=== PATIENT | female | born 1960 ===

== ENCOUNTER 2016-07-07 16:12 | Inpatient (IN) | payer MEDICAID ==
--- NOTE | 2016-07-07 16:27 | CT ---
PROCEDURE: CT HEAD WITHOUT CONTRAST. HISTORY: weakness COMPARISON: None available. TECHNIQUE: Axial computed tomography images were obtained through the head/brain without intravenous contrast. Radiation dose: Total exam DLP = 779 mGy-cm. This CT exam was performed using one or more of the following dose reduction techniques: Automated exposure control, adjustment of the mA and/or kV according to patient size, and/or use of iterative reconstruction technique. FINDINGS: HEMORRHAGE: No intracranial hemorrhage. BRAIN: No mass effect or edema. No atrophy or chronic microvascular ischemic changes. VENTRICLES: Unremarkable. No hydrocephalus. CALVARIUM: Unremarkable. PARANASAL SINUSES: Unremarkable as visualized. No significant inflammatory changes. MASTOID AIR CELLS: Unremarkable as visualized. No inflammatory changes. OTHER FINDINGS: None. IMPRESSION: No acute findings
--- NOTE | 2016-07-07 16:29 | ED PDOC ---
Arrival/HPI - General Chief Complaint: Weakness/Neurological Deficit Time Seen by Provider: 07/07/16 16:28 Historian: Patient, Family, EMS EM Caveat: Acuity of Condition - History of Present Illness Narrative History of Present Illness (Text): 07/07/16 16:31 56 year old female brought in by ambulance after patient became unresponsive at home. EMS report left facial droop and slurred speech. As per daughter, this happened about 45min before pt came into the ER. States that pt is more confused than usual. Past Medical History - Provider Review Nursing Documentation Reviewed: Yes - Past History Past History: No Previous - Infectious Disease Hx of Infectious Diseases: None - Tetanus Immunization Tetanus Immunization: Unknown - Reproductive Menopause: Yes - Cardiac Hx Cardiac Disorders: Yes Hx Hypertension: Yes - Pulmonary Hx Respiratory Disorders: Yes Hx Asthma: Yes Hx Chronic Obstructive Pulmonary Disease (COPD): Yes Hx Emphysema: Yes - Neurological Hx Neurological Disorder: No - HEENT Hx HEENT Disorder: No - Renal Hx Renal Disorder: No - Endocrine/Metabolic Hx Endocrine Disorders: Yes (hypoglycemia) - Hematological/Oncological Hx Blood Disorders: No - Integumentary Hx Dermatological Disorder: No - Musculoskeletal/Rheumatological Hx Musculoskeletal Disorders: Yes Hx Back Pain: Yes Hx Herniated Disk: Yes - Gastrointestinal Hx Gastrointestinal Disorders: No - Genitourinary/Gynecological Hx Genitourinary Disorders: No - Psychiatric Hx Psychophysiologic Disorder: Yes Hx Anxiety: Yes Hx Depression: Yes Hx Substance Use: No - Past Surgical History Past Surgical History: No Previous - Surgical History Hx Section: Yes Hx Tonsillectomy: Yes Hx Tubal Ligation: Yes (REVERSED) - Anesthesia Hx Anesthesia: No Hx Anesthesia Reactions: No - Suicidal Assessment Feels Threatened In Home Enviroment: No Family/Social History Family/Social History: Unknown Family HX Smoking Status: Former Smoker Hx Alcohol Use: No Hx Substance Use: No Hx Substance Use Treatment: No Allergies/Home Meds Allergies/Adverse Reactions: Allergies latex Allergy (Verified 07/07/16 16:30) RASH Penicillins Allergy (Verified 07/07/16 16:30) RASH Home Medications: Home Meds Medication Instructions Recorded Confirmed diaZEpam [Valium] 5 mg PO AMHS PRN 12/28/12 07/07/16 Acetaminophen/Oxycodone Hydr 1 tab PO Q6H PRN 04/14/13 05/01/16 [Percocet 10/325 mg Tab] Albuterol HFA [Ventolin HFA 90 1 puff IH BID 04/14/13 07/07/16 mcg/actuation (8 g)] Nitroglycerin [Nitrostat] 1 tab SL PRN PRN 10/09/13 07/07/16 Escitalopram Oxalate 20 mg PO DAILY 02/01/14 07/07/16 Aspirin [Aspirin Chewable] 81 mg PO DAILY 05/01/16 07/07/16 Clopidogrel [Plavix] 75 mg PO DAILY 05/01/16 07/07/16 Zolpidem [Ambien] 10 mg PO HS 05/01/16 07/07/16 Atorvastatin [Lipitor] 20 mg PO DAILY 07/07/16 07/07/16 Docusate [Colace] 100 mg PO DAILY 07/07/16 07/07/16 Lisinopril/Hydrochlorothiazide 1 each PO DAILY 07/07/16 07/07/16 [Lisinopril-Hctz 10-12.5 mg Tab] Nabumetone [Relafen] 500 mg PO 07/07/16 Salmeterol Xinafoate/Fluticaso 1 aer IH 07/07/16 [Advair Hfa 45/21] Review of Systems - Review of Systems Systems not reviewed;Unavailable: Acuity of Condition Physical Exam Vital Signs Reviewed: Yes Vital Signs Temp Pulse Resp BP Pulse Ox 07/07/16 16:35 98.3 F 80 18 148/76 100 Temperature: Afebrile Blood Pressure: Normal Pulse: Regular Respiratory Rate: Normal Appearance: Positive for: Non-Toxic, Comfortable Pain Distress: None Mental Status: No: Agitated, Lethargic - Systems Exam Head: Present: Atraumatic, Normocephalic Pupils: Present: PERRL Extroacular Muscles: Present: EOMI Conjunctiva: Present: Normal Mouth: Present: Moist Mucous Membranes. No: Dry, Drooling Neck: Present: Normal Range of Motion. No: Meningeal Signs, MIDLINE TENDERNESS Respiratory/Chest: Present: Clear to Auscultation, Good Air Exchange. No: Respiratory Distress, Accessory Muscle Use Cardiovascular: Present: Regular Rate and Rhythm, Normal S1, S2. No: Murmurs Abdomen: Present: Normal Bowel Sounds. No: Tenderness, Distention, Peritoneal Signs, Rebound, Guarding Back: Present: Normal Inspection Upper Extremity: Present: Normal Inspection. No: Cyanosis, Edema Lower Extremity: Present: Normal Inspection. No: Edema Neurological: Present: GCS=15, Normal Sensory Function, Other (L. upper extr. weakness. LLE unable to lift) Skin: Present: Warm, Dry, Normal Color. No: Rashes Psychiatric: Present: Alert. No: Anxious, Agitated Medical Decision Making ED Course and Treatment: 56-year-old female presents via EMS, neurologic complaints, stroke called in the field by EMS. Patient had slurring of speech, left upper extremity weakness, and inability to move left lower extremity. Case discussed with Dr. Zaid Johnson, recommends CT Belt Line Feeder : Jam Baptiste MD PROCEDURE: CT HEAD WITHOUT CONTRAST. IMPRESSION: No acute findings 07/07/16 17:04 Aspirin has been ordered On reevaluation, patients slurring of speech resolved, patient's daughter states that she is now speaking and mentaining at baseline Patient is now able to freely move her left upper extremity, and she is able to lift her left lower extremities well. I discussed pros and cons of TPA administration with patient's daughter, she is against medication administration Case discussed with Dr. Johnson again, also confirms that we will not administer TPA EKG interpreted by ER physician. Normal sinus. No ST-segment elevations. Normal intervals. 07/07/16 19:[address] Antonio, accepted admission, agrees with remote/tele pt with no new neuro deficits Belt Line Feeder : Stanislaw Mcqueen MD Approver2 : Report Date : 07/07/2016 17:43:44 My Comment : HISTORY: CVA. Semi upright study portable technique 17:12. COMPARISON: 02/01/2014. FINDINGS: LUNGS: No active pulmonary disease. PLEURA: No significant pleural effusion identified, no pneumothorax apparent. CARDIOVASCULAR: No radiographic findings to suggest acute or significant cardiovascular disease. OSSEOUS STRUCTURES: No significant abnormalities. VISUALIZED UPPER ABDOMEN: Normal. OTHER FINDINGS: None. IMPRESSION: No active disease. No significant interval change compared to the prior examination(s). - Critical Care Critical Care Minutes: 30 minutes - Lab Interpretations Lab Results: 07/07/16 16:35 07/07/16 16:35 Lab Results 07/07/16 16:35: Sodium 139, Potassium 3.6, Chloride 103, Carbon Dioxide 30, Anion Gap 10, BUN 16, Creatinine 0.9, Est GFR ( Amer) > 60, Est GFR (Non- Af Amer) > 60, Random Glucose 101, Calcium 9.1, Total Bilirubin 0.7, AST 29, ALT 27, Alkaline Phosphatase 71, Troponin I < 0.01, Total Protein 7.4, Albumin 4.2, Globulin 3.2, Albumin/Globulin Ratio 1.3, Triglycerides 209 H, Cholesterol 187, LDL Cholesterol Direct 100, HDL Cholesterol 47 07/07/16 16:35: PT 10.7, INR 0.99, APTT 30.8 07/07/16 16:35: WBC 6.7, RBC 4.03, Hgb 12.6, Hct 35.8 L, MCV 88.8, MCH 31.3, MCHC 35.2, RDW 12.2, Plt Count 246, MPV 9.3, Gran % 61.9, Lymph % (Auto) 30.2, Rap[place] % (Auto) 5.8, Eos % (Auto) 1.8, Baso % (Auto) 0.3, Gran # 4.17, Lymph # 2.0 , Rapides # 0.4, Eos # 0.1, Baso # 0.02 - RAD Interpretation Radiology Orders: 07/07/16 16:15 HEAD W/O (CODE STROKE) [CT] Stat 07/07/16 16:29 CHEST PORTABLE [RAD] Stat - Medication Orders Current Medication Orders: Discontinued Medications Aspirin (Aspirin) 325 mg PO STAT STA Stop: 07/07/16 16:30 Last Admin: 07/07/16 16:54 Dose: 325 mg NIHSS Scale ([place]) Time Performed: 16:37 - How Severe is the Stoke Baseline Level of Consciousness: 0=Alert LOC to Questions: 0=Both comments correct LOC to commands: 0=Obeys both correctly Best Gaze: 0=Normal Visual: 0=No visual loss Facial: 0=Normal Motor Arm - Left: 1=Drift noted before 10 sec Motor Arm - Right: 0=No drift Motor Leg - Left: 3=No effort against gravity (falls immediately) Motor Leg - Right: 0=No drift Limb Ataxia: 0=Absent Sensory: 0=Normal Best Language: 0=No aphasia Dysarthia: 1=Mild to moderate slurring Extinction & Inattention (Neglect): 0=Normal, no object Score: 5 Risk Level: Mod Stroke Risk rTPA Inclusion/Exclusion - Refusal of Treatment Patient Refused Treatment: Yes Disposition/Present on Arrival - Present on Arrival Any Indicators Present on Arrival: No History of DVT/PE: No History of Uncontrolled Diabetes: No Urinary Catheter: No History of Decub. Ulcer: No History Surgical Site Infection Following: None - Disposition Have Diagnosis and Disposition been Completed?: Yes Diagnosis: TIA (transient ischemic attack) Disposition: HOSPITALIZED Disposition Time: 19:23 Patient Plan: Admission Condition: FAIR Referrals: Carlie Smith MD [Primary Care Provider] - Follow up with primary
[2016-07-07 16:32] VITALS: BMI 27.6
[2016-07-07 17:29] LABS: ADD MANUAL DIFF? NO
[2016-07-07 17:36] LABS: BASO # 0.02 K/mm3 (0.0-2.0); BASO % 0.3 % (0.0-3.0); EOS # 0.1 (0.0-0.7); EOS % 1.8 % (1.5-5.0); GRAN # 4.17 (1.4-6.5); GRAN % 61.9 % (50.0-68.0); HEMATOCRIT 35.8 % (36.0-48.0); LYMPH % 30.2 % (22.0-35.0); MEAN CELL VOLUME 88.8 fL (80.0-105.0); MEAN CORPUSCULAR HEMOGLOBIN 31.3 pg (25.0-35.0); MEAN CORPUSCULAR HGB CONC 35.2 g/dl (31.0-37.0); MEAN PLATELET VOLUME 9.3 fl (7.0-11.0); MONO # 0.4 (0.1-0.6); MONO % 5.8 % (1.0-6.0); PLATELET COUNT 246 10^3/uL (120.0-450.0); RED CELL DISTRIBUTION WIDTH 12.2 % (11.5-14.5); WHITE BLOOD COUNT 6.7 10^3/ul (4.5-11.0)
[2016-07-07 17:42] LABS: ALB/GLOB RATIO 1.3 (1.1-1.8); ALKALINE PHOSPHATASE 71 U/L (38-133); ALT/SGPT 27 U/L (7-56); AST/SGOT 29 U/L (15-39); BILIRUBIN,TOTAL 0.7 mg/dL (0.2-1.3); BLOOD UREA NITROGEN 16 mg/dL (7-21); CALCIUM 9.1 mg/dL (8.4-10.5); CARBON DIOXIDE 30 mmol/L (21-33); CHLORIDE 103 mmol/L (98-107); CHOLESTEROL 187 mg/dL (130-200); GFR AFRICAN-AMERICAN > 60; GLUCOSE,RANDOM 101 mg/dL (70-110); POTASSIUM 3.6 mmol/L (3.6-5.0); SODIUM 139 mmol/L (132-148); TOTAL PROTEIN 7.4 g/dL (5.8-8.3)
[2016-07-07 17:45] LABS: INR 0.99 (0.93-1.08); PARTIAL THROMBOPLASTIN TIME 30.8 Seconds (23.7-30.8)
--- NOTE | 2016-07-07 17:45 | RAD ---
HISTORY: CVA. Semi upright study portable technique 17:12. COMPARISON: 02/01/2014. FINDINGS: LUNGS: No active pulmonary disease. PLEURA: No significant pleural effusion identified, no pneumothorax apparent. CARDIOVASCULAR: No radiographic findings to suggest acute or significant cardiovascular disease. OSSEOUS STRUCTURES: No significant abnormalities. VISUALIZED UPPER ABDOMEN: Normal. OTHER FINDINGS: None. IMPRESSION: No active disease. No significant interval change compared to the prior examination(s).
[2016-07-07 17:58] LABS: TROPONIN I < 0.01 ng/mL
--- NOTE | 2016-07-07 21:35 | CARD ---
APPROVED REPORT EKG Measurement Heart [id number] CO [id number] [id number] <Conclusion> Normal sinus rhythm Normal ECG
--- NOTE | 2016-07-07 21:43 | CP.PCM.HP ---
<Oracio Vera - Last Filed: 07/08/16 07:16> History of Present Illness - History of Present Illness History of Present Illness: Oracio Vera D.O. PGY-1, Internal Medicine Resident, Night Float Admission CC: left sided weakness and confusion since today 56 year old [place] female with a PMH of HTN, depression, anxiety, herniated disks who presents to [facility] ER on 07/07/16 with complaints of left sided weakness and confusion since this afternoon. Patient's daughter is at bedside and provided context. Patient was at home and was suddenly "not acting herself" and was not responsive to questions. Family called paramedics who stated that "something wasn't right so they brought us here." Patient is able to communicate in both [place] and Amharic but appears somewhat confused and is a poor historian. Patient states that she has somewhat of a headache and that her left side feels "tired." This has never happened before. Daughter denies any slurred speech as she did not talk. No sick contacts or recent travel noted. Daughter states that her weakness seems to have gotten a bit better since arrival. PMH: as above PSH: SH: denies smoking, alcohol, or drug use FH: father of colon CA, mother had heart failure Meds: reviewed Allergies: latex, penicillins Present on Admission - Present on Admission Any Indicators Present on Admission: No Review of Systems - Constitutional Constitutional: absent: Chills, Fatigue, Fever - EENT Eyes: absent: Blind Spots, Blurred Vision, Change in Vision, Diplopia Ears: absent: Decreased Hearing, Ear Discharge, Ear Pain, Disequilibrium, Dizziness Nose/Mouth/Throat: absent: Epistaxis, Nasal Congestion, Nose Pain - Cardiovascular Cardiovascular: absent: Chest Pain, Palpitations, Pedal Edema - Respiratory Respiratory: absent: Cough, Dyspnea, Wheezing - Gastrointestinal Gastrointestinal: absent: Abdominal Pain, Constipation, Diarrhea, Nausea, Vomiting - Genitourinary Genitourinary: absent: Dysuria, Hematuria - Musculoskeletal Musculoskeletal: absent: Deformity, Joint Swelling, Muscle Cramps - Integumentary Integumentary: absent: Pruritus, Rash, Swelling - Neurological Neurological: Confusion, Numbness (left sided), Focal Weakness (left side), Headaches, Sensory Deficit Past Patient History - Infectious Disease Hx of Infectious Diseases: None - Tetanus Immunizations Tetanus Immunization: Unknown - Past Social History Smoking Status: Former Smoker - CARDIAC Hx Cardiac Disorders: Yes Hx Hypertension: Yes - PULMONARY Hx Respiratory Disorders: Yes Hx Asthma: Yes Hx Chronic Obstructive Pulmonary Disease (COPD): Yes Hx Emphysema: Yes - NEUROLOGICAL Hx Neurological Disorder: No - HEENT Hx HEENT Problems: No - RENAL Hx Chronic Kidney Disease: No - ENDOCRINE/METABOLIC Hx Endocrine Disorders: Yes (hypoglycemia) - HEMATOLOGICAL/ONCOLOGICAL Hx Blood Disorders: No - INTEGUMENTARY Hx Dermatological Problems: No - MUSCULOSKELETAL/RHEUMATOLOGICAL Hx Musculoskeletal Disorders: Yes Hx Back Pain: Yes Hx Herniated Disk: Yes - GASTROINTESTINAL Hx Gastrointestinal Disorders: No - GENITOURINARY/GYNECOLOGICAL Hx Genitourinary Disorders: No - PSYCHIATRIC Hx Psychophysiologic Disorder: Yes Hx Anxiety: Yes Hx Depression: Yes Hx Substance Use: No - SURGICAL HISTORY Hx Section: Yes Hx Tonsillectomy: Yes Hx Tubal Ligation: Yes (REVERSED) - ANESTHESIA Hx Anesthesia: No Hx Anesthesia Reactions: No Meds Allergies/Adverse Reactions: Allergies Allergy/AdvReac Type Severity Reaction Status Date / Time latex Allergy RASH Verified 07/07/16 16:30 Penicillins Allergy RASH Verified 07/07/16 16:30 Physical Exam - Constitutional Additional comments: well developed, well nourished [place] female resting in bed in NAD, somewhat confused, daughter at bedside - Head Exam Head Exam: ATRAUMATIC, NORMOCEPHALIC - Eye Exam Eye Exam: EOMI, PERRL. absent: Conjunctival injection, Scleral icterus - ENT Exam ENT Exam: Mucous Membranes Moist, Normal Oropharynx - Neck Exam Neck exam: Positive for: Full Rom. Negative for: Lymphadenopathy - Respiratory Exam Respiratory Exam: Clear to Auscultation Bilateral. absent: Rales, Rhonchi, Wheezes - Cardiovascular Exam Cardiovascular Exam: RRR, +S1, +S2. absent: Diastolic murmur, Gallop, Rubs, Systolic Murmur - GI/Abdominal Exam GI & Abdominal Exam: Normal Bowel Sounds, Soft. absent: Distended, Tenderness - Extremities Exam Extremities exam: Positive for: normal capillary refill, pedal pulses present. Negative for: calf tenderness, joint swelling, pedal edema, tenderness - Back Exam Back exam: absent: paraspinal tenderness, vertebral tenderness - Neurological Exam Additional comments: awake, alert, and oriented to self, time up to year, place up to city, and situation, but at times answers simply questions wrong and is notably confused, there is a mild left facial droop, L control inspector 4-/5, BI 4/5, TRI 4-/5, DELT 4-/5, HF 4-/5, KF 4/5, PF 4/5, DF 4/5, EHL 4/5, right side intact throughout, also there is numbness all long her left arm, leg, and side of face, otherwise rest of cranial nerves were intact, downgoing Babinskis, negative Hoffmans - Skin Skin Exam: Dry, Intact, Warm Results - Vital Signs Recent Vital Signs: Last Vital Signs Temp 98.3 F 07/07/16 16:35 Pulse 69 07/07/16 18:12 Resp 18 07/07/16 18:12 BP 144/89 07/07/16 18:12 Pulse Ox 100 07/07/16 18:12 - Labs Result Diagrams: 07/07/16 16:35 07/07/16 16:35 Assessment & Plan - Assessment and Plan (Free Text) Assessment: 56 year old [place] female with a PMH of HTN, depression, anxiety, herniated disks who presents with complaints of left sided weakness and confusion since this afternoon. Plan: 1. Left sided deficits Admitted to remote telemetry Labs reviewed by myself Head CT reviewed, no acute findings TIA vs stroke depending on how long the symptoms last Neurology Dr. Johnson consulted Troponins trending, negative so far Swallow eval placed PT/OT ordered Neurochecks q4x20 Aspiration precautions HOB 30 Started aspirin Started atorvastatin 2. HTN Continued home medications 3. Anxiety Continued home medications DVT ppx: SCDs Patient was seen and examined at bedside and case was discussed at length with attending physician. - Date & Time Date: 07/07/16 Time: 22:50 <Moe Rogers - Last Filed: 07/08/16 19:50> Results - Vital Signs Recent Vital Signs: Last Vital Signs Temp 97.6 F 07/08/16 16:00 Pulse 78 07/08/16 18:00 Resp 20 07/08/16 16:00 BP 107/70 07/08/16 16:00 Pulse Ox 98 07/08/16 16:00 - Labs Result Diagrams: 07/08/16 07:30 07/08/16 07:30 Labs: Laboratory Results - last 24 hr 07/07/16 07/07/16 07/08/16 21:49 21:49 07:30 WBC RBC Hgb Hct MCV MCH MCHC RDW Plt Count MPV Gran % Lymph % (Auto) Giles % (Auto) Eos % (Auto) Baso % (Auto) Gran # Lymph # Giles # Eos # Baso # Sodium Potassium Chloride Carbon Dioxide Anion Gap BUN Creatinine Est GFR ( Amer) Est GFR (Non-Af Amer) Random Glucose Hemoglobin A1c Calcium Total Bilirubin AST ALT Alkaline Phosphatase Troponin I < 0.01 Total Protein Albumin Globulin Albumin/Globulin Ratio TSH 3rd Generation Blood Type O POSITIVE Blood Type Confirm O POSITIVE Antibody Screen Negative BBK History Checked No verified bt 07/08/16 07/08/16 07/08/16 07:30 07:30 07:30 WBC 5.0 D RBC 3.90 Hgb 12.2 Hct 34.9 L MCV 89.5 MCH 31.3 MCHC 35.0 RDW 12.4 Plt Count 217 MPV 9.2 Gran % 46.3 L Lymph % (Auto) 41.7 H Giles % (Auto) 8.0 H Eos % (Auto) 3.6 Baso % (Auto) 0.4 Gran # 2.33 Lymph # 2.1 Giles # 0.4 Eos # 0.2 Baso # 0.02 Sodium 140 Potassium 3.7 Chloride 104 Carbon Dioxide 29 Anion Gap 11 BUN 17 Creatinine 0.8 Est GFR ( Amer) > 60 Est GFR (Non-Af Amer) > 60 Random Glucose 92 Hemoglobin A1c 5.5 Calcium 8.9 Total Bilirubin 1.0 AST 25 ALT 30 Alkaline Phosphatase 64 Troponin I < 0.01 Total Protein 6.8 Albumin 3.8 Globulin 3.0 Albumin/Globulin Ratio 1.3 TSH 3rd Generation Blood Type Blood Type Confirm Antibody Screen BBK History Checked 07/08/16 07:30 WBC RBC Hgb Hct MCV MCH MCHC RDW Plt Count MPV Gran % Lymph % (Auto) Giles % (Auto) Eos % (Auto) Baso % (Auto) Gran # Lymph # Giles # Eos # Baso # Sodium Potassium Chloride Carbon Dioxide Anion Gap BUN Creatinine Est GFR ( Amer) Est GFR (Non-Af Amer) Random Glucose Hemoglobin A1c Calcium Total Bilirubin AST ALT Alkaline Phosphatase Troponin I Total Protein Albumin Globulin Albumin/Globulin Ratio TSH 3rd Generation 3.60 Blood Type Blood Type Confirm Antibody Screen BBK History Checked Attending/Attestation - Attestation I have personally seen and examined this patient.: Yes I have fully participated in the care of the patient.: Yes I have reviewed all pertinent clinical information: Yes Notes (Text): 07/08/16 19:49 Patient was seen with medical review specialist in the ER. Agree with history, physical examination, assessment and plan.
[2016-07-08] MEDS: Oxycodone/Acetaminophen 10/325 mg Tab PO PRN ×3 (00:25→16:47)
[2016-07-08] MEDS ORDERED: Albuterol 0.083% Inhal Sol (2.5 mg/3 mL) UD IH SCH ×2 (08:00)
[2016-07-08 08:07] LABS: ADD MANUAL DIFF? NO
[2016-07-08 08:10] LABS: BASO # 0.02 K/mm3 (0.0-2.0); BASO % 0.4 % (0.0-3.0); EOS # 0.2 (0.0-0.7); EOS % 3.6 % (1.5-5.0); GRAN # 2.33 (1.4-6.5); GRAN % 46.3 % (50.0-68.0); HEMATOCRIT 34.9 % (36.0-48.0); LYMPH # 2.1 (1.2-3.4); LYMPH % 41.7 % (22.0-35.0); MEAN CELL VOLUME 89.5 fL (80.0-105.0); MEAN CORPUSCULAR HEMOGLOBIN 31.3 pg (25.0-35.0); MEAN PLATELET VOLUME 9.2 fl (7.0-11.0); MONO # 0.4 (0.1-0.6); PLATELET COUNT 217 10^3/uL (120.0-450.0); RED CELL DISTRIBUTION WIDTH 12.4 % (11.5-14.5)
[2016-07-08] MEDS: Albuterol 0.083% Inhal Sol (2.5 mg/3 mL) UD IH SCH ×2 (08:32→20:27)
[2016-07-08 08:37] LABS: ALB/GLOB RATIO 1.3 (1.1-1.8); ALKALINE PHOSPHATASE 64 U/L (38-133); ALT/SGPT 30 U/L (7-56); AST/SGOT 25 U/L (15-39); BLOOD UREA NITROGEN 17 mg/dL (7-21); CALCIUM 8.9 mg/dL (8.4-10.5); CARBON DIOXIDE 29 mmol/L (21-33); CHLORIDE 104 mmol/L (98-107); GFR AFRICAN-AMERICAN > 60; GLUCOSE,RANDOM 92 mg/dL (70-110); POTASSIUM 3.7 mmol/L (3.6-5.0); SODIUM 140 mmol/L (132-148); TOTAL PROTEIN 6.8 g/dL (5.8-8.3)
[2016-07-08 08:43] LABS: TROPONIN I < 0.01 ng/mL
--- NOTE | 2016-07-08 08:59 | CP.PCM.PN ---
<Kiarra Salazar - Last Filed: 07/08/16 09:18> Subjective - Date & Time of Evaluation Date of Evaluation: 07/08/16 Time of Evaluation: 08:53 - Subjective Subjective: Hospitalist Progress Note Patient seen and examined at bedside. There were no acute overnight events. She report having weakness on her left side of face, arm and leg with decreased sensation. Patient says she had 3 stents placed in the past and that is why she takes Plavix and Aspirin. She used to see a pain doctor for her history of back pain but now gets it from her PMD. She denies having CP, SOB, n/v/d, numbness/ tingling. Objective - Vital Signs/Intake and Output Vital Signs (last 24 hours): Temp Pulse Resp BP Pulse Ox 97.8 F 59 L 20 116/72 97 07/08/16 07:18 07/08/16 08:24 07/08/16 07:18 07/08/16 07:18 07/08/16 07:18 - Medications Medications: Current Medications Albuterol Sulfate (Albuterol 0.083% Inhal Susan (2.5 Mg/3 Ml) Ud) 2.5 mg IH [id number] CARLIE Last Admin: 07/08/16 08:32 Dose: 2.5 mg Aspirin (Aspirin Chewable) 81 mg PO DAILY CARLIE Atorvastatin Calcium (Lipitor) 20 mg PO DAILY CARLIE Clopidogrel Bisulfate (Plavix) 75 mg PO DAILY CARLIE Diazepam (Valium) 5 mg PO AMHS PRN; Protocol PRN Reason: Muscle spasm Docusate Sodium (Colace) 100 mg PO DAILY [facility] Escitalopram Oxalate (Lexapro) 20 mg PO DAILY CARLIE Hydrochlorothiazide (Microzide) 12.5 mg PO DAILY CARLIE Lisinopril (Zestril) 10 mg PO DAILY [facility] Oxycodone/Acetaminophen (Percocet 10/325 Mg Tab) 1 tab PO Q6H PRN PRN Reason: Pain, severe (8-10) Last Admin: 07/08/16 00:25 Dose: 1 tab Zolpidem Tartrate (Ambien) 5 mg PO HS CARLIE PRN Reason: Protocol Last Admin: 07/08/16 00:25 Dose: 5 mg - Labs Labs: 07/08/16 07:30 07/08/16 07:30 PT 10.7 Seconds (9.9-11.8) 07/07/16 16:35 INR 0.99 (0.93-1.08) 07/07/16 16:35 APTT 30.8 Seconds (23.7-30.8) 07/07/16 16:35 - Constitutional Appears: No Acute Distress - Head Exam Head Exam: ATRAUMATIC, NORMAL INSPECTION, NORMOCEPHALIC - Eye Exam Eye Exam: Normal appearance Pupil Exam: NORMAL ACCOMODATION - ENT Exam ENT Exam: Mucous Membranes Moist - Neck Exam Neck Exam: Full ROM - Respiratory Exam Respiratory Exam: Clear to Ausculation Bilateral, NORMAL BREATHING PATTERN. absent: Rales, Rhonchi, Wheezes - Cardiovascular Exam Cardiovascular Exam: REGULAR RHYTHM, +S1, +S2. absent: Gallop, Rubs, Murmur - GI/Abdominal Exam GI & Abdominal Exam: Soft, Normal Bowel Sounds. absent: Rigid, Tenderness, Mass , Rebound - Extremities Exam Extremities Exam: Normal Inspection. absent: Calf Tenderness, Pedal Edema - Neurological Exam Neurological Exam: Alert, Awake, Oriented x3 Neuro motor strength exam: Left Upper Extremity: 2/1, Right Upper Extremity: 5, Left Lower Extremity: 3, Right Lower Extremity: 5 Additional comments: L sided facial droop not including forehead. Decreased sensation on L face, arm and leg. Speech slurred. - Psychiatric Exam Psychiatric exam: Normal Affect, Normal Mood - Skin Skin Exam: Dry, Intact, Normal Color, Warm Assessment and Plan - Assessment and Plan (Free Text) Assessment: This is a 56Y F with PMH HTN, HLD, depression, anxiety, chronic back pain from herniated disc, [place] s/p 3 stents who is admitted for CVA. Plan: 1. CVA - Head CT negative - L sided deficits on face, upper and lower extremity, decreased sensation - MRI brain ordered - Neuro consulted - neuro checks - passed speech and swallow - Speech therapy and physical therapy ordered - Aspiration precaution - Carotid doppler, Echo pending - ASA, Lipitor and Plavix - Cardio consulted - Triglycerides mildly elevated, will check TSH and HgbA1c 2. Hx of PCI s/p 3 stents - Cardio consulted - Echo ordered - Continue Plavix and ASA - EKG showed NSR, trop neg x 3 - Uses Imdur at home. 3. HTN - Continue home meds: Lisinopril, HCTZ 4. Depression - Continue Lexapro 5. Chronic back pain - Continue home meds: Valium and percocet prn 6. Hx of Insomnia - Continue Ambien HS GI ppx: PTX DVT ppx: SCDs Case seen, discussed and reviewed with attending Pattie Salazar PGY1 <Ren Valenzuela - Last Filed: 07/08/16 15:41> Objective - Vital Signs/Intake and Output Vital Signs (last 24 hours): Temp Pulse Resp BP Pulse Ox 97.8 F 70 20 116/72 97 07/08/16 07:18 07/08/16 09:34 07/08/16 07:18 07/08/16 09:34 07/08/16 07:18 Intake and Output: 07/08/16 07/08/16 06:59 18:59 Intake Total 600 Output Total 700 Balance -100 - Medications Medications: Current Medications Albuterol Sulfate (Albuterol 0.083% Inhal Susan (2.5 Mg/3 Ml) Ud) 2.5 mg IH [id number] [facility] Last Admin: 07/08/16 08:32 Dose: 2.5 mg Aspirin (Aspirin Chewable) 81 mg PO DAILY [facility] Last Admin: 07/08/16 09:31 Dose: 81 mg Atorvastatin Calcium (Lipitor) 20 mg PO DAILY [facility] Last Admin: 07/08/16 09:34 Dose: 20 mg Clopidogrel Bisulfate (Plavix) 75 mg PO DAILY [facility] Last Admin: 07/08/16 09:34 Dose: 75 mg Diazepam (Valium) 5 mg PO AMHS PRN; Protocol PRN Reason: Muscle spasm Docusate Sodium (Colace) 100 mg PO DAILY [facility] Last Admin: 07/08/16 09:33 Dose: 100 mg Escitalopram Oxalate (Lexapro) 20 mg PO DAILY [facility] Last Admin: 07/08/16 09:36 Dose: 20 mg Hydrochlorothiazide (Microzide) 12.5 mg PO DAILY [facility] Last Admin: 07/08/16 09:34 Dose: 12.5 mg Lisinopril (Zestril) 10 mg PO DAILY [facility] Last Admin: 07/08/16 09:34 Dose: 10 mg Oxycodone/Acetaminophen (Percocet 10/325 Mg Tab) 1 tab PO Q6H PRN PRN Reason: Pain, severe (8-10) Last Admin: 07/08/16 09:34 Dose: 1 tab Pantoprazole Sodium (Protonix Ec Tab) 40 mg PO ACB CARLIE Zolpidem Tartrate (Ambien) 5 mg PO HS CARLIE PRN Reason: Protocol - Labs Labs: 07/08/16 07:30 07/08/16 07:30 PT 10.7 Seconds (9.9-11.8) 07/07/16 16:35 INR 0.99 (0.93-1.08) 07/07/16 16:35 APTT 30.8 Seconds (23.7-30.8) 07/07/16 16:35 Attending/Attestation - Attestation I have personally seen and examined this patient.: Yes I have fully participated in the care of the patient.: Yes I have reviewed all pertinent clinical information, including history, physical exam and plan: Yes Notes (Text): 07/08/16 15:38 attending note; Patient seen and examined with resident. Patient is a 56-year-old female with a history of hypertension, coronary artery disease with stent placement, chronic back pain with disc bulge , previous history of fall, depression, hearing impaired is admitted with unresponsiveness and left-sided weakness. CT head is negative. MRI is negative. no significant carotid stenosis. Stroke protocol followed. continue aspirin, Plavix, lipitor,lisinopril and hydro -thiazide. History of chronic back ; Continue Percocet and Valium. depression; Continue Lexapro. PT evaluation appreciated. Recommending rehabilitation. Case discussed with director social service for discharge planning. The diagnosis discussed with patient's daughter in detail .
[2016-07-08] MEDS ORDERED: Albuterol 0.083% Inhal Sol (2.5 mg/3 mL) UD IH ONE (09:15)
--- NOTE | 2016-07-08 12:43 | MRI ---
PROCEDURE: MRI BRAIN WITHOUT CONTRAST HISTORY: CVA COMPARISON: Noncontrast head CT from 07/07/2016. TECHNIQUE: Multiplanar, multisequence MR images of the brain were obtained without intravenous contrast enhancement. FINDINGS: HEMORRHAGE: None DWI: No evidence of an acute or early subacute infarction. BRAIN PARENCHYMA: Cheng-white matter differentiation is preserved. There is no mass, mass effect or abnormal extra-axial fluid collection. The midline sagittal structures are normal. VENTRICLES: The ventricles are normal in size, shape and configuration. CRANIUM: There is normal bone marrow signal pattern. ORBITS: Grossly unremarkable. PARANASAL SINUSES/MASTOIDS: Predominantly clear. VASCULAR SYSTEM: There are normal signal voids in the larger intracranial arteries. OTHER FINDINGS: None. IMPRESSION: No acute intracranial abnormality. Specifically, no evidence of acute infarction.
--- NOTE | 2016-07-08 14:06 | US ---
PROCEDURE: Bilateral carotid artery duplex ultrasound HISTORY: Carotid stenosis CVA PHYSICIAN(S): Sha Mayo MD. TECHNIQUE: Duplex sonography and color-flow Doppler were used to evaluate the carotid bifurcations and limited segments of the vertebral arteries bilaterally. FINDINGS: There is mild smooth heterogeneous plaque noted at the carotid bifurcations bilaterally. The peak systolic velocity in the proximal right internal carotid artery is 65 cm/sec. This corresponds to a 20 to 39% proximal right ICA stenosis. Normal systolic velocities are noted in the proximal right external carotid artery. There is antegrade flow in the right vertebral artery. The peak systolic velocity in the proximal left internal carotid artery is 63 cm/sec. This corresponds to a 20 to 39% proximal left ICA stenosis. Normal systolic velocities are noted in the proximal left external carotid artery. There is antegrade flow in the left vertebral artery. IMPRESSION: 1. Bilateral 20-39% proximal ICA stenoses. 2. Antegrade flow in both vertebral arteries.
--- NOTE | 2016-07-08 16:40 | CARD ---
APPROVED REPORT EXAM: Two-dimensional and M-mode echocardiogram with Doppler and color Doppler. INDICATION CVA/TIA 2D DIMENSIONS Left Atrium (2D)3.5 (1.6-4.0cm)IVSd0.9 (0.7-1.1cm) LVDd4.7 (3.9-5.9cm)PWd1.1 (0.7-1.1cm) LVDs3.0 (2.5-4.0cm)FS (%) 36.6 % LVEF (%)66.3 (>50%) M-Mode DIMENSIONS Aortic Root2.10 (2.2-3.7cm)Aortic Cusp Exc.1.40 (1.5-2.0cm) Aortic Valve AoV Peak Ctgfqcqc701.0cm/Porfirio Peak GR.6mmHg Mitral Valve MV E Djvjnuhk33.2cm/sMV A Duvxzkkq37.6cm/sE/A ratio1.2 TDI E/Lateral E'0.0E/Medial E'0.0 Tricuspid Valve TR Peak Etmuebop876hj/sRAP VHGOSOWO43dtBlAC Peak Gr.18mmHg [id number] LEFT VENTRICLE The left ventricle is normal size. There is normal left ventricular wall thickness. The left ventricular function is normal. The left ventricular ejection fraction is within the normal range. There is normal LV segmental wall motion. The left ventricular diastolic function is normal. RIGHT VENTRICLE The right ventricle is normal size. There is normal right ventricular wall thickness. The right ventricular systolic function is normal. ATRIA The left atrium size is normal. The right atrium size is normal. AORTIC VALVE The aortic valve is normal in structure. No aortic regurgitation is present. MITRAL VALVE The mitral valve is normal in structure. There is no mitral valve regurgitation noted. TRICUSPID VALVE There is no pulmonary hypertension. GREAT VESSELS The aortic root is normal in size. The IVC collapses <50% with inspiration. PERICARDIAL EFFUSION There is a trace loculated anterior pericardial effusion. <Conclusion> The left ventricle is normal size. There is normal left ventricular wall thickness. The left ventricular function is normal. The left ventricular ejection fraction is within the normal range. There is normal LV segmental wall motion. The left ventricular diastolic function is normal.
--- NOTE | 2016-07-08 16:58 | CARD ---
APPROVED REPORT EKG Measurement Heart [id number] <Conclusion> Sinus bradycardia Otherwise normal ECG
--- NOTE | 2016-07-08 17:35 | CON ---
DATE: 07/08/2016 REASON FOR CONSULTATION: Possible CVA. HISTORY OF PRESENT ILLNESS: The patient is a 56-year-old female who has history of hypertension, hyp erlipidemia who underwent cardiac catheterization in 2010 in [facility] and was told she guevara s insignificant coronary artery disease at that time. She follows up with her photoengraving finisher at the [facility] in [place] since then. The patient was admitted because of unresponsiveness and left-sided we akness. Apparently, a friend was with her and when she noticed unresponsiveness, she activated EMS. After admission, the patient regained her consciousness; however, she is still experiencing left arm and left leg weakness. The patient denies any retrosternal chest pain and is unaware of any history of heart attack in the past. SOCIAL HISTORY: The patient is a nonsmoker. MEDICATIONS: Albuterol inhaler q. 12 hours, aspirin 81 mg once a day, Ambien 5 mg at bedtime, Colace 100 mg once a day, Lexapro 20 mg once a day, Lipitor 20 mg once a day, hydrochlorothiazide 12.5 mg o nce a day, Plavix 75 mg once a day, Zestril 10 mg once a day, diazepam 5 mg p.o. q.a.m. and at bedtim e p.r.n. REVIEW OF SYSTEMS: No nausea or vomiting, no fever or chills. The patient did experience headache a nd still experiencing headache. PHYSICAL EXAMINATION: GENERAL: The patient is a middle-aged female who does not appear to be in any distress. VITAL SIGNS: Blood pressure 116/72, heart rate 69, temperature 97.8, respiration 20. HEENT: Normocephalic. NECK: No JVD. CHEST: Clear. HEART: S1, S2 regular. EXTREMITIES: No edema. LABORATORY DATA: CBC: WBC 5, hemoglobin 12.2, hematocrit 34.9, platelet count 217,000. PT, PTT wit hin normal limits. SMA-7 is within normal limits. Three sets of troponins are negative. Triglyceri rambo elevated at 209, rest of the lipid profile is within normal limits. TSH level is within normal l imits at 3.6. EKG revealed sinus bradycardia at . Chest x-ray is unremarkable. A head CT scan , brain MRI and carotid artery ultrasound were all unremarkable. ASSESSMENT: 1. Left-sided weakness. Rule out transient ischemic attack versus cerebrovascular accident. 2. Rule out cervical spine cord compression. 3. Mild sinus bradycardia. 4. Hypertriglyceridemia. RECOMMENDATIONS: Continue current aspirin 81 mg once a day, Plavix 75 mg once a day, Lipitor 20 mg o nce a day, hydrochlorothiazide 12.5 mg once a day, Zestril 10 mg once a day. I will follow echocardi ographic study performed today and obtain cervical spine x-ray. Daerll Renner MD cc: [id number] TT: 07/08/2016 17:34:34 Confirmation # [id number] Dictation # [id number] ln
--- NOTE | 2016-07-08 20:01 | CON ---
DATE: 07/08/2016 HISTORY OF PRESENT ILLNESS: This is a 56-year-old female with past medical history of hyper tension, anxiety, and disk disease, came with left-sided weakness and brought to the hospital. MRA o f the head was done, which was reported negative for any acute stroke. The patient has limited movem ent above the shoulder and left upper extremity and slight weakness of the left lower extremity. No slurring of speech. Friends at bedside. PAST MEDICAL HISTORY: As above. SOCIAL HISTORY: Does not smoke, does not drink. ALLERGIES: LATEX AND PENICILLIN. PHYSICAL EXAMINATION: HEENT: Normocephalic, atraumatic. VITAL SIGNS: Blood pressure 144/89. NECK: Supple. NEUROLOGIC: Alert, awake, oriented x 3. No aphasia. Cranial nerves II through XII were tested. Pu pils reactive. EOMs intact. Visual cook full. No facial asymmetry. Tongue midline. Motor exami nation: Weakness of the left upper and left lower extremities noted, 4/5. Deep tendon reflexes 1+. Both plantars are downgoing. Sensory appears intact. Cerebellar gait deferred. IMPRESSION AND PLAN: A 56-year-old female with past medical history of hypertension, anxiet y, depression, disk disease, came with left-sided weakness and possibly transient ischemic attack nelson saud stroke. Code stroke was called. Physical therapy. We will follow up. Telly Johnson MD cc: [id number] TT: 07/08/2016 20:00:36 Confirmation # [id number] Dictation # [id number] laurent
[2016-07-09] MEDS ORDERED: Albuterol-Ipratrop 3 mg / 0.5 (3 ml) UD IH STA (02:18)
[2016-07-09] MEDS ORDERED: Albuterol 0.083% Inhal Sol (2.5 mg/3 mL) UD IH PRN (02:26)
--- NOTE | 2016-07-09 07:49 | RAD ---
PROCEDURE: Cervical Spine Radiographs. HISTORY: Pain. COMPARISON: None. FINDINGS: BONES: Alignment maintained. No fracture. Dens Intact. DISC SPACES: Normal. SOFT TISSUES: Normal. No prevertebral soft tissue swelling. OTHER FINDINGS: None. IMPRESSION: Normal cervical spine radiographs
[2016-07-09 07:57] LABS: HEMATOCRIT 35.4 % (36.0-48.0); MEAN CELL VOLUME 89.2 fL (80.0-105.0); MEAN CORPUSCULAR HGB CONC 34.7 g/dl (31.0-37.0); MEAN PLATELET VOLUME 9.2 fl (7.0-11.0); RED CELL DISTRIBUTION WIDTH 12.3 % (11.5-14.5); WHITE BLOOD COUNT 5.4 10^3/ul (4.5-11.0)
[2016-07-09 08:13] LABS: ALB/GLOB RATIO 1.2 (1.1-1.8); ALKALINE PHOSPHATASE 61 U/L (38-133); ALT/SGPT 34 U/L (7-56); AST/SGOT 29 U/L (15-39); BILIRUBIN,TOTAL 0.7 mg/dL (0.2-1.3); BLOOD UREA NITROGEN 19 mg/dL (7-21); CALCIUM 9.2 mg/dL (8.4-10.5); CARBON DIOXIDE 30 mmol/L (21-33); CHLORIDE 99 mmol/L (98-107); GFR AFRICAN-AMERICAN > 60; GLUCOSE,RANDOM 100 mg/dL (70-110); POTASSIUM 3.4 mmol/L (3.6-5.0); SODIUM 139 mmol/L (132-148)
[2016-07-09] MEDS: Albuterol 0.083% Inhal Sol (2.5 mg/3 mL) UD IH SCH ×3 (08:21→20:00)
[2016-07-09] MEDS: Pantoprazole 40 mg EC Tab PO SCH (09:21)
[2016-07-09] MEDS: Oxycodone/Acetaminophen 10/325 mg Tab PO PRN ×2 (09:34→20:20)
--- NOTE | 2016-07-09 12:50 | CP.PCM.PN ---
<Kiarra Salazar - Last Filed: 07/09/16 12:43> Subjective - Date & Time of Evaluation Date of Evaluation: 07/09/16 Time of Evaluation: 12:44 - Subjective Subjective: Hospitalist Progress Note Patient seen and examined at bedside. There were no acute overnight events. Last night she said her asthma was acting up and needed a treatment. She reports her weakness and sensation has improved. She denies CP, SOB, n/v/d, numbness/tingling, fever, or chills. Objective - Vital Signs/Intake and Output Vital Signs (last 24 hours): Temp Pulse Resp BP Pulse Ox 97.7 F 66 20 112/69 98 07/09/16 12:07 07/09/16 12:07 07/09/16 12:07 07/09/16 12:07 07/09/16 12:07 Intake and Output: 07/09/16 07/09/16 06:59 18:59 Intake Total 660 Output Total 1000 Balance -340 - Medications Medications: Current Medications Albuterol Sulfate (Albuterol 0.083% Inhal Susan (2.5 Mg/3 Ml) Ud) 2.5 mg IH Q4H PRN PRN Reason: Shortness of Breath Albuterol Sulfate (Albuterol 0.083% Inhal Susan (2.5 Mg/3 Ml) Ud) 2.5 mg IH [id number] [facility] Last Admin: 07/09/16 08:21 Dose: 2.5 mg Aspirin (Aspirin Chewable) 81 mg PO DAILY [facility] Last Admin: 07/09/16 09:20 Dose: 81 mg Atorvastatin Calcium (Lipitor) 20 mg PO DAILY [facility] Last Admin: 07/09/16 09:20 Dose: 20 mg Clopidogrel Bisulfate (Plavix) 75 mg PO DAILY [facility] Last Admin: 07/09/16 09:21 Dose: 75 mg Diazepam (Valium) 5 mg PO AMHS PRN; Protocol PRN Reason: Muscle spasm Docusate Sodium (Colace) 100 mg PO DAILY [facility] Last Admin: 07/09/16 09:21 Dose: 100 mg Escitalopram Oxalate (Lexapro) 20 mg PO DAILY [facility] Last Admin: 07/09/16 09:21 Dose: 20 mg Hydrochlorothiazide (Microzide) 12.5 mg PO DAILY [facility] Last Admin: 07/09/16 09:20 Dose: 12.5 mg Lisinopril (Zestril) 10 mg PO DAILY CARLIE Last Admin: 07/09/16 09:21 Dose: 10 mg Oxycodone/Acetaminophen (Percocet 10/325 Mg Tab) 1 tab PO Q6H PRN PRN Reason: Pain, severe (8-10) Last Admin: 07/09/16 09:34 Dose: 1 tab Pantoprazole Sodium (Protonix Ec Tab) 40 mg PO ACB CARLIE Last Admin: 07/09/16 09:21 Dose: 40 mg Zolpidem Tartrate (Ambien) 5 mg PO HS CALRIE PRN Reason: Protocol Last Admin: 07/08/16 21:54 Dose: 5 mg - Labs Labs: 07/09/16 07:45 07/09/16 07:45 PT 10.7 Seconds (9.9-11.8) 07/07/16 16:35 INR 0.99 (0.93-1.08) 07/07/16 16:35 APTT 30.8 Seconds (23.7-30.8) 07/07/16 16:35 - Constitutional Appears: No Acute Distress - Head Exam Head Exam: ATRAUMATIC, NORMAL INSPECTION, NORMOCEPHALIC - Eye Exam Eye Exam: Normal appearance, PERRL Pupil Exam: NORMAL ACCOMODATION, PERRL - ENT Exam ENT Exam: Mucous Membranes Moist - Respiratory Exam Respiratory Exam: Clear to Ausculation Bilateral, NORMAL BREATHING PATTERN. absent: Rales, Rhonchi, Wheezes - Cardiovascular Exam Cardiovascular Exam: REGULAR RHYTHM, +S1, +S2. absent: Gallop, Rubs - GI/Abdominal Exam GI & Abdominal Exam: Soft, Normal Bowel Sounds. absent: Rigid, Tenderness, Mass , Rebound - Extremities Exam Extremities Exam: Normal Inspection. absent: Calf Tenderness, Pedal Edema - Neurological Exam Neurological Exam: Alert, Awake, CN II-XII Intact, Oriented x3 Neuro motor strength exam: Left Upper Extremity: 4, Right Upper Extremity: 5, Left Lower Extremity: 4, Right Lower Extremity: 5 - Psychiatric Exam Psychiatric exam: Normal Affect, Normal Mood - Skin Skin Exam: Dry, Normal Color, Warm Assessment and Plan - Assessment and Plan (Free Text) Assessment: This is a 56Y F with PMH HTN, HLD, depression, anxiety, chronic back pain from herniated disc, [place] s/p 3 stents who is admitted for L sided deficit r/ o CVA/TIA Plan: 1. L side deficit - r/o TIA versus cervical radiculopathy - MRI brain negative, Head CT negative - Echo showed EF 66% with normal LV function - XR of cervical spine normal - Carotid doppler showed 20-30% ICA stenosis bilaterally - Neuro consulted- recs appreciated - ASA, Lipitor and Plavix - Cardio consulted- recs appreciated - Triglycerides mildly elevated - TSH N and Hgb A1c: 5.5 2. CAD s/p 3 stents - Cardio consulted- recs appreciated - Continue Plavix and ASA 3. HTN - Continue Lisinopril, HCTZ 4. Depression - Lexapro 5. Chronic back pain - Valium and percocet prn 6. Hx of Insomnia - Continue Ambien HS GI ppx: PTX DVT ppx: SCDs Dispo: PT recommended [facility]. Pt will be d/c to [facility] on MondayJuly 11. Case seen, discussed and reviewed with attending Pattie Salazar PGY1 <Ren Valenzuela - Last Filed: 07/09/16 14:57> Objective - Vital Signs/Intake and Output Vital Signs (last 24 hours): Temp Pulse Resp BP Pulse Ox 97.7 F 66 20 112/69 98 07/09/16 12:07 07/09/16 12:07 07/09/16 12:07 07/09/16 12:07 07/09/16 12:07 Intake and Output: 07/09/16 07/09/16 06:59 18:59 Intake Total 660 480 Output Total 1000 Balance -340 480 - Medications Medications: Current Medications Albuterol Sulfate (Albuterol 0.083% Inhal Susan (2.5 Mg/3 Ml) Ud) 2.5 mg IH Q4H PRN PRN Reason: Shortness of Breath Albuterol Sulfate (Albuterol 0.083% Inhal Susan (2.5 Mg/3 Ml) Ud) 2.5 mg IH [id number] [facility] Last Admin: 07/09/16 14:04 Dose: 2.5 mg Aspirin (Aspirin Chewable) 81 mg PO DAILY [facility] Last Admin: 07/09/16 09:20 Dose: 81 mg Atorvastatin Calcium (Lipitor) 20 mg PO DAILY [facility] Last Admin: 07/09/16 09:20 Dose: 20 mg Clopidogrel Bisulfate (Plavix) 75 mg PO DAILY [facility] Last Admin: 07/09/16 09:21 Dose: 75 mg Diazepam (Valium) 5 mg PO AMHS PRN; Protocol PRN Reason: Muscle spasm Docusate Sodium (Colace) 100 mg PO DAILY [facility] Last Admin: 07/09/16 09:21 Dose: 100 mg Escitalopram Oxalate (Lexapro) 20 mg PO DAILY [facility] Last Admin: 07/09/16 09:21 Dose: 20 mg Hydrochlorothiazide (Microzide) 12.5 mg PO DAILY [facility] Last Admin: 07/09/16 09:20 Dose: 12.5 mg Lisinopril (Zestril) 10 mg PO DAILY [facility] Last Admin: 07/09/16 09:21 Dose: 10 mg Oxycodone/Acetaminophen (Percocet 10/325 Mg Tab) 1 tab PO Q6H PRN PRN Reason: Pain, severe (8-10) Last Admin: 07/09/16 09:34 Dose: 1 tab Pantoprazole Sodium (Protonix Ec Tab) 40 mg PO ACB [facility] Last Admin: 07/09/16 09:21 Dose: 40 mg Zolpidem Tartrate (Ambien) 5 mg PO HS CARLIE PRN Reason: Protocol Last Admin: 07/08/16 21:54 Dose: 5 mg - Labs Labs: 07/09/16 07:45 07/09/16 07:45 PT 10.7 Seconds (9.9-11.8) 07/07/16 16:35 INR 0.99 (0.93-1.08) 07/07/16 16:35 APTT 30.8 Seconds (23.7-30.8) 07/07/16 16:35 Attending/Attestation - Attestation I have personally seen and examined this patient.: Yes I have fully participated in the care of the patient.: Yes I have reviewed all pertinent clinical information, including history, physical exam and plan: Yes Notes (Text): 07/09/16 14:54 attending note; Patient seen and examined with resident. Patient is a 56-year-old female with a history of hypertension, coronary artery disease with stent placement, chronic back pain with disc bulge , previous history of fall, depression, hearing impaired is admitted with unresponsiveness and left-sided weakness. CT head is negative. MRI is negative. no significant carotid stenosis. Stroke protocol followed. continue aspirin, Plavix, lipitor,lisinopril and hydro -thiazide. Case discussed with neurologist Dr. Johnson in detail. Cardiology evaluation appreciated. Echocardiogram is normal. History of chronic back ; Continue Percocet and Valium. Cervical spine x-rays negative. depression; Continue Lexapro. PT evaluation appreciated. Recommending rehabilitation. Case discussed with adoption social worker for discharge planning. Upon discharge the patient will will follow-up with PMD DR. Morales. 07/09/16 14:56
[2016-07-10] MEDS: Albuterol 0.083% Inhal Sol (2.5 mg/3 mL) UD IH SCH ×4 (01:55→20:45)
[2016-07-10] MEDS: Pantoprazole 40 mg EC Tab PO SCH (07:09)
[2016-07-10] MEDS: Oxycodone/Acetaminophen 10/325 mg Tab PO PRN ×3 (09:21→22:54)
--- NOTE | 2016-07-10 10:33 | CP.PCM.PN ---
<Kiarra Salazar - Last Filed: 07/10/16 10:29> Subjective - Date & Time of Evaluation Date of Evaluation: 07/10/16 Time of Evaluation: 10:29 - Subjective Subjective: Hospitalist Progress Note Patient seen and examined at bedside. There were no acute overnight events. She reports her strength has improved. Was able to walk to bathroom on own. She denies CP, SOB, vision changes, n/v/d, numbness/tingling, fever or chills. Objective - Vital Signs/Intake and Output Vital Signs (last 24 hours): Temp Pulse Resp BP Pulse Ox 98.1 F 76 18 114/69 94 L 07/09/16 16:43 07/10/16 09:20 07/09/16 16:43 07/10/16 09:20 07/09/16 16:43 Intake and Output: 07/10/16 07/10/16 06:59 18:59 Intake Total 360 Balance 360 - Medications Medications: Current Medications Albuterol Sulfate (Albuterol 0.083% Inhal Susan (2.5 Mg/3 Ml) Ud) 2.5 mg IH Q4H PRN PRN Reason: Shortness of Breath Albuterol Sulfate (Albuterol 0.083% Inhal Susan (2.5 Mg/3 Ml) Ud) 2.5 mg IH [id number] [facility] Last Admin: 07/10/16 08:23 Dose: 2.5 mg Aspirin (Aspirin Chewable) 81 mg PO DAILY [facility] Last Admin: 07/10/16 09:21 Dose: 81 mg Atorvastatin Calcium (Lipitor) 20 mg PO DAILY [facility] Last Admin: 07/10/16 09:21 Dose: 20 mg Clopidogrel Bisulfate (Plavix) 75 mg PO DAILY [facility] Last Admin: 07/10/16 09:21 Dose: 75 mg Diazepam (Valium) 5 mg PO [facility] PRN; Protocol PRN Reason: Muscle spasm Docusate Sodium (Colace) 100 mg PO DAILY [facility] Last Admin: 07/10/16 09:21 Dose: 100 mg Escitalopram Oxalate (Lexapro) 20 mg PO DAILY [facility] Last Admin: 07/10/16 09:21 Dose: 20 mg Hydrochlorothiazide (Microzide) 12.5 mg PO DAILY [facility] Last Admin: 07/10/16 09:21 Dose: 12.5 mg Lisinopril (Zestril) 10 mg PO DAILY [facility] Last Admin: 07/10/16 09:20 Dose: 10 mg Oxycodone/Acetaminophen (Percocet 10/325 Mg Tab) 1 tab PO Q6H PRN PRN Reason: Pain, severe (8-10) Last Admin: 07/10/16 09:21 Dose: 1 tab Pantoprazole Sodium (Protonix Ec Tab) 40 mg PO ACB [facility] Last Admin: 07/10/16 07:09 Dose: 40 mg Zolpidem Tartrate (Ambien) 5 mg PO HS [facility] PRN Reason: Protocol Last Admin: 07/09/16 21:20 Dose: 5 mg - Labs Labs: 07/09/16 07:45 07/09/16 07:45 PT 10.7 Seconds (9.9-11.8) 07/07/16 16:35 INR 0.99 (0.93-1.08) 07/07/16 16:35 APTT 30.8 Seconds (23.7-30.8) 07/07/16 16:35 - Constitutional Appears: No Acute Distress - Head Exam Head Exam: ATRAUMATIC, NORMAL INSPECTION, NORMOCEPHALIC - Eye Exam Eye Exam: Normal appearance, PERRL Pupil Exam: NORMAL ACCOMODATION - ENT Exam ENT Exam: Mucous Membranes Moist - Neck Exam Neck Exam: Full ROM, Normal Inspection - Respiratory Exam Respiratory Exam: Clear to Ausculation Bilateral, NORMAL BREATHING PATTERN. absent: Rales, Rhonchi, Wheezes - Cardiovascular Exam Cardiovascular Exam: REGULAR RHYTHM, +S1, +S2. absent: Gallop, Rubs, Murmur - GI/Abdominal Exam GI & Abdominal Exam: Soft, Normal Bowel Sounds. absent: Rigid, Tenderness, Mass , Rebound - Extremities Exam Extremities Exam: Normal Inspection. absent: Calf Tenderness, Pedal Edema - Neurological Exam Neurological Exam: Alert, Awake, CN II-XII Intact, Oriented x3 Neuro motor strength exam: Left Upper Extremity: 5, Right Upper Extremity: 5, Left Lower Extremity: 5, Right Lower Extremity: 5 - Psychiatric Exam Psychiatric exam: Normal Affect, Normal Mood - Skin Skin Exam: Dry, Normal Color, Warm Assessment and Plan - Assessment and Plan (Free Text) Assessment: This is a 56Y F with PMH HTN, HLD, depression, anxiety, chronic back pain from herniated disc, [place] s/p 3 stents who is admitted for L sided deficit r/ o CVA/TIA. Plan: 1. L side deficit - r/o TIA versus cervical radiculopathy - Follow Stroke Protocol - MRI, CT head and XR of cervical spine all within normal limites - Cardio consulted- recs appreciated - Neuro consulted- recs appreciated - Echo showed EF 66% with normal LV function - Carotid doppler showed 20-30% ICA stenosis bilaterally - Continue ASA, Lipitor and Plavix 2. CAD s/p 3 stents - ASA, Plavix, Lipitor - Cardio consulted- recs appreciated 3. HTN - Lisinopril, HCTZ 4. Depression - Continue Lexapro 5. Chronic back pain - Continue home meds: Valium and percocet prn 6. Hx of Insomnia - Ambien HS (home med) GI ppx: PTX DVT ppx: SCDs Dispo: PT recommended [facility]. Pt will be d/c to [facility] on MondayJuly 11. Upon D/C pt can follow up with PMD, Dr. Morales. Case seen, discussed and reviewed with attending Pattie Salazar PGY1 <Ren Valenzuela - Last Filed: 07/10/16 13:15> Objective - Vital Signs/Intake and Output Vital Signs (last 24 hours): Temp Pulse Resp BP Pulse Ox 98.4 F 76 20 114/69 96 07/10/16 11:27 07/10/16 11:27 07/10/16 11:27 07/10/16 11:27 07/10/16 11:27 Intake and Output: 07/10/16 07/10/16 06:59 18:59 Intake Total 360 Balance 360 - Medications Medications: Current Medications Albuterol Sulfate (Albuterol 0.083% Inhal Susan (2.5 Mg/3 Ml) Ud) 2.5 mg IH Q4H PRN PRN Reason: Shortness of Breath Albuterol Sulfate (Albuterol 0.083% Inhal Susan (2.5 Mg/3 Ml) Ud) 2.5 mg IH [id number] [facility] Last Admin: 07/10/16 08:23 Dose: 2.5 mg Aspirin (Aspirin Chewable) 81 mg PO DAILY [facility] Last Admin: 07/10/16 09:21 Dose: 81 mg Atorvastatin Calcium (Lipitor) 20 mg PO DAILY [facility] Last Admin: 07/10/16 09:21 Dose: 20 mg Clopidogrel Bisulfate (Plavix) 75 mg PO DAILY [facility] Last Admin: 07/10/16 09:21 Dose: 75 mg Diazepam (Valium) 5 mg PO [facility] PRN; Protocol PRN Reason: Muscle spasm Docusate Sodium (Colace) 100 mg PO DAILY [facility] Last Admin: 07/10/16 09:21 Dose: 100 mg Escitalopram Oxalate (Lexapro) 20 mg PO DAILY [facility] Last Admin: 07/10/16 09:21 Dose: 20 mg Hydrochlorothiazide (Microzide) 12.5 mg PO DAILY [facility] Last Admin: 07/10/16 09:21 Dose: 12.5 mg Lisinopril (Zestril) 10 mg PO DAILY [facility] Last Admin: 07/10/16 09:20 Dose: 10 mg Oxycodone/Acetaminophen (Percocet 10/325 Mg Tab) 1 tab PO Q6H PRN PRN Reason: Pain, severe (8-10) Last Admin: 07/10/16 09:21 Dose: 1 tab Pantoprazole Sodium (Protonix Ec Tab) 40 mg PO ACB [facility] Last Admin: 07/10/16 07:09 Dose: 40 mg Sodium Chloride ([place] Nasal [place]) 0 ml NS Q4H PRN PRN Reason: Nasal congestion Zolpidem Tartrate (Ambien) 5 mg PO HS [facility] PRN Reason: Protocol Last Admin: 07/09/16 21:20 Dose: 5 mg - Labs Labs: 07/09/16 07:45 07/09/16 07:45 PT 10.7 Seconds (9.9-11.8) 07/07/16 16:35 INR 0.99 (0.93-1.08) 07/07/16 16:35 APTT 30.8 Seconds (23.7-30.8) 07/07/16 16:35 Attending/Attestation - Attestation I have personally seen and examined this patient.: Yes I have fully participated in the care of the patient.: Yes I have reviewed all pertinent clinical information, including history, physical exam and plan: Yes Notes (Text): 07/10/16 13:14 attending note; Patient seen and examined with resident. Patient is a 56-year-old female with a history of hypertension, coronary artery disease with stent placement, chronic back pain with disc bulge , previous history of fall, depression, hearing impaired is admitted with unresponsiveness and left-sided weakness. CT head is negative. MRI is negative. no significant carotid stenosis. Stroke protocol followed. continue aspirin, Plavix, lipitor,lisinopril. BP is controlled. Case discussed with neurologist Dr. Johnson in detail. Cardiology evaluation appreciated. Echocardiogram is normal. History of chronic back ; Continue Percocet and Valium. Cervical spine x-rays negative. depression; Continue Lexapro. PT evaluation appreciated. Recommending rehabilitation. Case discussed with social media marketing manager for discharge planning. Upon discharge the patient will will follow-up with PMD DR. Morales.
[2016-07-10 11:28] VITALS: RESP 20
[2016-07-11] MEDS: Albuterol 0.083% Inhal Sol (2.5 mg/3 mL) UD IH SCH ×3 (01:50→13:09)
[2016-07-11 07:16] VITALS: BP 112/71; PULSE 75; TEMP 98.4; O2SAT 96
[2016-07-11 07:45] LABS: ALB/GLOB RATIO 1.2 (1.1-1.8); ALKALINE PHOSPHATASE 56 U/L (38-133); ALT/SGPT 32 U/L (7-56); AST/SGOT 20 U/L (15-39); BILIRUBIN,TOTAL 0.7 mg/dL (0.2-1.3); BLOOD UREA NITROGEN 23 mg/dL (7-21); CALCIUM 9.2 mg/dL (8.4-10.5); CARBON DIOXIDE 31 mmol/L (21-33); CHLORIDE 98 mmol/L (98-107); GFR AFRICAN-AMERICAN > 60; GLUCOSE,RANDOM 95 mg/dL (70-110); POTASSIUM 3.7 mmol/L (3.6-5.0); SODIUM 137 mmol/L (132-148); TOTAL PROTEIN 6.9 g/dL (5.8-8.3)
[2016-07-11 08:00] LABS: HEMATOCRIT 35.9 % (36.0-48.0); MEAN CELL VOLUME 92.5 fL (80.0-105.0); MEAN CORPUSCULAR HEMOGLOBIN 31.2 pg (25.0-35.0); MEAN CORPUSCULAR HGB CONC 33.7 g/dl (31.0-37.0); MEAN PLATELET VOLUME 9.4 fl (7.0-11.0); RED CELL DISTRIBUTION WIDTH 12.4 % (11.5-14.5); WHITE BLOOD COUNT 5.3 10^3/ul (4.5-11.0)
[2016-07-11] MEDS: Pantoprazole 40 mg EC Tab PO SCH (08:21)
--- NOTE | 2016-07-11 15:53 | CP.PCM.DIS ---
<Nancy Goodrich - Last Filed: 07/12/16 11:05> Provider - Provider Date of Admission: 07/07/16 19:27 Attending physician: Nick Graff MD Primary care physician: Carlie Smith MD Time Spent in preparation of Discharge (in minutes): 45 Hospital Course - Lab Results Lab Results: Most Recent Lab Values WBC 5.3 10^3/ul (4.5-11.0) 07/11/16 07:00 RBC 3.88 10^6/uL (3.5-6.1) 07/11/16 07:00 Hgb 12.1 gm/dL (12.0-16.0) 07/11/16 07:00 Hct 35.9 % (36.0-48.0) L 07/11/16 07:00 MCV 92.5 fL (80.0-105.0) 07/11/16 07:00 MCH 31.2 pg (25.0-35.0) 07/11/16 07:00 MCHC 33.7 g/dl (31.0-37.0) 07/11/16 07:00 RDW 12.4 % (11.5-14.5) 07/11/16 07:00 Plt Count 228 10^3/uL (120.0-450.0) 07/11/16 07:00 MPV 9.4 fl (7.0-11.0) 07/11/16 07:00 Gran % 46.3 % (50.0-68.0) L 07/08/16 07:30 Lymph % (Auto) 41.7 % (22.0-35.0) H 07/08/16 07:30 [place] % (Auto) 8.0 % (1.0-6.0) H 07/08/16 07:30 Eos % (Auto) 3.6 % (1.5-5.0) 07/08/16 07:30 Baso % (Auto) 0.4 % (0.0-3.0) 07/08/16 07:30 Gran # 2.33 (1.4-6.5) 07/08/16 07:30 Lymph # 2.1 (1.2-3.4) 07/08/16 07:30 [place] # 0.4 (0.1-0.6) 07/08/16 07:30 Eos # 0.2 (0.0-0.7) 07/08/16 07:30 Baso # 0.02 K/mm3 (0.0-2.0) 07/08/16 07:30 PT 10.7 Seconds (9.9-11.8) 07/07/16 16:35 INR 0.99 (0.93-1.08) 07/07/16 16:35 APTT 30.8 Seconds (23.7-30.8) 07/07/16 16:35 Sodium 137 mmol/L (132-148) 07/11/16 07:00 Potassium 3.7 mmol/L (3.6-5.0) 07/11/16 07:00 Chloride 98 mmol/L (98-107) 07/11/16 07:00 Carbon Dioxide 31 mmol/L (21-33) 07/11/16 07:00 Anion Gap 12 (10-20) 07/11/16 07:00 BUN 23 mg/dL (7-21) H 07/11/16 07:00 Creatinine 0.9 mg/dL (0.5-1.4) 07/11/16 07:00 Est GFR ( Amer) > 60 07/11/16 07:00 Est GFR (Non-Af Amer) > 60 07/11/16 07:00 Random Glucose 95 mg/dL (70-110) 07/11/16 07:00 Hemoglobin A1c 5.5 % (4.2-6.5) 07/08/16 07:30 Calcium 9.2 mg/dL (8.4-10.5) 07/11/16 07:00 Total Bilirubin 0.7 mg/dL (0.2-1.3) 07/11/16 07:00 AST 20 U/L (15-39) 07/11/16 07:00 ALT 32 U/L (7-56) 07/11/16 07:00 Alkaline Phosphatase 56 U/L (38-133) 07/11/16 07:00 Troponin I < 0.01 ng/mL 07/08/16 07:30 Total Protein 6.9 g/dL (5.8-8.3) 07/11/16 07:00 Albumin 3.8 g/dL (3.0-4.8) 07/11/16 07:00 Globulin 3.1 gm/dL 07/11/16 07:00 Albumin/Globulin Ratio 1.2 (1.1-1.8) 07/11/16 07:00 Triglycerides 209 mg/dL (35-160) H 07/07/16 16:35 Cholesterol 187 mg/dL (130-200) 07/07/16 16:35 LDL Cholesterol Direct 100 mg/dL (0-129) 07/07/16 16:35 HDL Cholesterol 47 mg/dL (29-60) 07/07/16 16:35 TSH 3rd Generation 3.60 mIU/mL (0.46-4.68) 07/08/16 07:30 Blood Type O POSITIVE 07/07/16 21:49 Blood Type Confirm O POSITIVE 07/08/16 07:30 Antibody Screen Negative 07/07/16 21:49 BBK History Checked No verified bt 07/07/16 21:49 - Hospital Course Hospital Course: This is a 56Y F with PMH HTN, HLD, depression, anxiety, chronic back pain from herniated disc, [place] s/p 3 stents who is admitted for L sided deficit 2/ 2 to TIA. Upon admission Stroke Protocol was followed. Neurology was consulted, tPa was not indicated at the time. Head CT showed no acute findings. MRI did not show any acute abnormalities but showed possible lucaunar infarct. XRay of cervical spine all within normal limits. Cardiology was consulted. Echo showed EF 66% with normal LV function. Carotid doppler showed 20-30% ICA stenosis bilaterally. PT recommended continue PT, home with services. Patient stated that the deficiencies on the L sided has improved but continues to be weak. Patient stable for discharge home. Discharge instructions are to follow up with primary doctor and Dr myers outpatient. Continue all home medications. Discharge diagnoses is TIA. Discharge instructions were discussed with patient and family, they are in agreement. Discharge Exam - Head Exam Head Exam: ATRAUMATIC, NORMAL INSPECTION, NORMOCEPHALIC - Eye Exam Eye Exam: EOMI, Normal appearance - ENT Exam ENT Exam: Mucous Membranes Moist - Respiratory Exam Respiratory Exam: Clear to PA & Lateral, NORMAL BREATHING PATTERN, UNREMARKABLE. absent: Rales, Rhonchi, Wheezes, Respiratory Distress - Cardiovascular Exam Cardiovascular Exam: REGULAR RHYTHM, +S1, +S2. absent: Tachycardia, Systolic Murmur - GI/Abdominal Exam GI & Abdominal Exam: Normal Bowel Sounds, Soft, Unremarkable. absent: Distended , Firm, Guarding, Tenderness - Extremities Exam Extremities exam: normal inspection Additional comments: right upper and lower extremity strength: 5/5, left upper and lower strength: 4/ 5 - Neurological Exam Neurological exam: Alert, Oriented x3 - Skin Skin Exam: Dry, Intact, Normal Color, Warm Discharge Plan - Follow Up Plan Condition: FAIR Disposition: HOME/ ROUTINE Instructions: Transient Ischemic Attack (DC), Transient Ischemic Attack (GEN), Back Pain (GEN) Additional Instructions: Patient stable for discharge home. Discharge instructions: - patient to follow up with primary doctor and Dr myers as an outpatient. No new home medications Discharge diagnoses: TIA Referrals: Carlie Smith MD [Primary Care Provider] - Telly Meyrs MD [Staff Provider] - <Nick Graff - Last Filed: 07/12/16 11:59> Provider - Provider Date of Admission: 07/07/16 19:27 Attending physician: Nick Graff MD Primary care physician: Carlie Smith MD Hospital Course - Lab Results Lab Results: Most Recent Lab Values WBC 5.3 10^3/ul (4.5-11.0) 07/11/16 07:00 RBC 3.88 10^6/uL (3.5-6.1) 07/11/16 07:00 Hgb 12.1 gm/dL (12.0-16.0) 07/11/16 07:00 Hct 35.9 % (36.0-48.0) L 07/11/16 07:00 MCV 92.5 fL (80.0-105.0) 07/11/16 07:00 MCH 31.2 pg (25.0-35.0) 07/11/16 07:00 MCHC 33.7 g/dl (31.0-37.0) 07/11/16 07:00 RDW 12.4 % (11.5-14.5) 07/11/16 07:00 Plt Count 228 10^3/uL (120.0-450.0) 07/11/16 07:00 MPV 9.4 fl (7.0-11.0) 07/11/16 07:00 Gran % 46.3 % (50.0-68.0) L 07/08/16 07:30 Lymph % (Auto) 41.7 % (22.0-35.0) H 07/08/16 07:30 [place] % (Auto) 8.0 % (1.0-6.0) H 07/08/16 07:30 Eos % (Auto) 3.6 % (1.5-5.0) 07/08/16 07:30 Baso % (Auto) 0.4 % (0.0-3.0) 07/08/16 07:30 Gran # 2.33 (1.4-6.5) 07/08/16 07:30 Lymph # 2.1 (1.2-3.4) 07/08/16 07:30 [place] # 0.4 (0.1-0.6) 07/08/16 07:30 Eos # 0.2 (0.0-0.7) 07/08/16 07:30 Baso # 0.02 K/mm3 (0.0-2.0) 07/08/16 07:30 PT 10.7 Seconds (9.9-11.8) 07/07/16 16:35 INR 0.99 (0.93-1.08) 07/07/16 16:35 APTT 30.8 Seconds (23.7-30.8) 07/07/16 16:35 Sodium 137 mmol/L (132-148) 07/11/16 07:00 Potassium 3.7 mmol/L (3.6-5.0) 07/11/16 07:00 Chloride 98 mmol/L (98-107) 07/11/16 07:00 Carbon Dioxide 31 mmol/L (21-33) 07/11/16 07:00 Anion Gap 12 (10-20) 07/11/16 07:00 BUN 23 mg/dL (7-21) H 07/11/16 07:00 Creatinine 0.9 mg/dL (0.5-1.4) 07/11/16 07:00 Est GFR ( Amer) > 60 07/11/16 07:00 Est GFR (Non-Af Amer) > 60 07/11/16 07:00 Random Glucose 95 mg/dL (70-110) 07/11/16 07:00 Hemoglobin A1c 5.5 % (4.2-6.5) 07/08/16 07:30 Calcium 9.2 mg/dL (8.4-10.5) 07/11/16 07:00 Total Bilirubin 0.7 mg/dL (0.2-1.3) 07/11/16 07:00 AST 20 U/L (15-39) 07/11/16 07:00 ALT 32 U/L (7-56) 07/11/16 07:00 Alkaline Phosphatase 56 U/L (38-133) 07/11/16 07:00 Troponin I < 0.01 ng/mL 07/08/16 07:30 Total Protein 6.9 g/dL (5.8-8.3) 07/11/16 07:00 Albumin 3.8 g/dL (3.0-4.8) 07/11/16 07:00 Globulin 3.1 gm/dL 07/11/16 07:00 Albumin/Globulin Ratio 1.2 (1.1-1.8) 07/11/16 07:00 Triglycerides 209 mg/dL (35-160) H 07/07/16 16:35 Cholesterol 187 mg/dL (130-200) 07/07/16 16:35 LDL Cholesterol Direct 100 mg/dL (0-129) 07/07/16 16:35 HDL Cholesterol 47 mg/dL (29-60) 07/07/16 16:35 TSH 3rd Generation 3.60 mIU/mL (0.46-4.68) 07/08/16 07:30 Blood Type O POSITIVE 07/07/16 21:49 Blood Type Confirm O POSITIVE 07/08/16 07:30 Antibody Screen Negative 07/07/16 21:49 BBK History Checked No verified bt 07/07/16 21:49 Attending/Attestation - Attestation I have personally seen and examined this patient.: Yes I have fully participated in the care of the patient.: Yes I have reviewed all pertinent clinical information, including history, physical exam and plan: Yes Notes (Text): I have seen and examined patient with the resident. This is 56 year old female with a history of hypertension, coronary artery disease with stent placement, chronic back pain with disc bulge, previous history of fall, depression, hearing impaired who got admitted with unresponsiveness and left- sided weakness. CT head is negative. MRI was reported as negative however small lacunar infarct could not be ruled out as per neurologist. Patients symptoms improved. There was no significant carotid stenosis. Discussed with neuologist. Continue aspirin, Plavix, lipitor and lisinopril. Echocardiogram is normal.Continue Percocet and Valium for chronic back pain. Cervical spine x- rays negative. Continue Lexapro for depression. PT recommended rehabilitation however patient is refusing to go to rehab. Case discussed with social services director for discharge planning . Referral for home visiting nurses made and recommended outpatient PT. Upon discharge the patient will will follow-up with PMD DR. Morales. Dr Nick Graff
[2016-07-11] MEDS ORDERED: Pneumococcal 23-Valent Vaccine IM ONE (15:57)
--- NOTE | 2016-07-11 17:29 | PN ---
DATE: 07/11/2016 Follow up for left-sided weakness. SUBJECTIVE: The patient seen and examined at bedside. She says the left side of her body is much be tter in terms of ____ strength with 5-/5. MRI of the brain showed no acute intracranial abnormality, but according to my read I felt like there was a small lacunar size infarct in the right MCA territo ry causing left-sided weakness. Carotid Doppler showed 20-39% proximal ICA stenosis. Echo shows 66% ejection fraction. At this time, she is on aspirin 81 mg, Plavix 75 mg and Lipitor 20 mg for stroke prevention. She is on Valium for muscle spasms and Lexapro for underlying depression. No acute jodi nts overnight. PAST MEDICAL HISTORY: History of hypertension, hyperlipidemia, depression, anxiety, chronic back cristian n from herniated disks, [facility] status post 3 stents. REVIEW OF SYSTEMS: A 14-point review of systems is negative except for the HPI. MEDICATIONS: Reviewed via nurse's reconciliation sheet. SOCIAL HISTORY: No illicit drug use, smoking, or ETOH abuse. FAMILY HISTORY: Noncontributory. PHYSICAL EXAMINATION: VITAL SIGNS: Temperature 98.4, pulse rate 75, blood pressure 112/71, respiratory rate 20, oxygen 96% via room air. GENERAL: The patient is sitting up in bed, no acute distress. HEENT: Atraumatic, normocephalic. PERRLA. Extraocular muscles intact. NECK: Supple, no JVD, no adenopathy noted. LUNGS: Clear to auscultation. No adventitious sounds. HEART: S1, S2, normal rate and rhythm. No murmurs, rubs, or gallops. ABDOMEN: Soft, nontender, nondistended. Bowel sounds are present. EXTREMITIES: No clubbing, no cyanosis. Peripheral pulses 2+ felt bilaterally. NEUROLOGIC: The patient is alert, oriented to person, place, month and year. Speech is fluent witho ut errors. Cranial nerves II through XII are intact. MOTOR: Moves all extremities equally except for some mild 5-/5 left side weakness. Toes are equivoc al. SENSORY: Withdraws to localized noxious stimulus. ____ vibration and proprioception are intact bila terally. DEEP TENDON REFLEXES: 2+ throughout. COORDINATION: [id number] intact. GAIT: Deferred for now. LABORATORY DATA: Sodium is 137, potassium 3.7, chloride 98, carbon dioxide 31, BUN of 23, creatinine 0.9, random glucose is 95. ASSESSMENT AND PLAN: This is a 56-year-old woman with past medical history of hypertension, depression, hyperlipidemia, anxiety, chronic back pain from herniated disks, myocardial infarction s tatus post 3 stents, who was admitted for transient left-sided weakness in the left side of her body with MRI of the brain showing no acute intracranial abnormalities, but did show possible lacunar infa rct in the right MCA territory indicating left side weakness. Echocardiogram showed ejection fractio n 66% with normal LV function. Carotid Doppler showed 20-39% proximal ICA stenosis with antegrade fl ow of vertebral arteries. Currently, ____ for left-sided weakness likely secondary to transient isch emic attack with a possible small acute lacunar infarct in the right middle cerebral artery territory . At this time, recommend: 1. Aspirin 81 mg, Plavix 75 mg, Lipitor 40 mg p.o. daily for stroke prevention as well as her histor y of cardiac stents. 2. Outpatient home physical therapy for left-sided weakness. 3. Continue with Lexapro for depression. 4. Continue to keep her blood pressure between 120-130 mmHg. 5. Physical therapy for her chronic back pain. 6. She is clinically stable for discharge. Thank you for this followup. Sam Johnson MD cc: [id number] TT: 07/11/2016 17:28:49 Confirmation # [id number] Dictation # [id number] mn
[2016-07-12] MEDS ORDERED: POLYETHYLENE GLYCOL 3350 17 GM/Dose PACKET PO SCH (10:00)
== END 2016-07-11 16:49 | disposition home health service (06) | DRG 832 ==
LOC: ED 16:12 → ERH 19:27 → 3RNO 23:14
PROVIDERS: ADMIT Internal Medicine; ATTEND Hospitalist
PROC: 3E0F7GC Introduction of Other Therapeutic Substance into Respiratory Tract, Via Natural or Artificial Opening (ICD-10-PCS; principal; 2016-07-08)
DX: G45.9 Transient cerebral ischemic attack, unspecified (principal); R53.1 Weakness; I10 Essential (primary) hypertension; J44.9 Chronic obstructive pulmonary disease, unspecified; I65.23 Occlusion and stenosis of bilateral carotid arteries; I25.10 Atherosclerotic heart disease of native coronary artery without angina pectoris; E78.5 Hyperlipidemia, unspecified; E78.1 Pure hyperglyceridemia; G89.29 Other chronic pain; M54.9 Dorsalgia, unspecified; R00.1 Bradycardia, unspecified; F32.9 Major depressive disorder, single episode, unspecified; G47.00 Insomnia, unspecified; J45.909 Unspecified asthma, uncomplicated; F41.9 Anxiety disorder, unspecified; H91.90 Unspecified hearing loss, unspecified ear; Z95.5 Presence of coronary angioplasty implant and graft; I25.2 Old myocardial infarction; Z79.02 Long term (current) use of antithrombotics/antiplatelets; Z79.82 Long term (current) use of aspirin; Z87.891 Personal history of nicotine dependence; Z80.0 Family history of malignant neoplasm of digestive organs; Z82.49 Family history of ischemic heart disease and other diseases of the circulatory system

== ENCOUNTER 2016-08-13 12:56 | Emergency (ER) | payer MEDICAID ==
[2016-08-13 13:07] VITALS: RESP 18; TEMP 98
[2016-08-13 13:08] VITALS: BMI 34.5
--- NOTE | 2016-08-13 13:10 | ED PDOC ---
Arrival/HPI - General Chief Complaint: Back Pain Time Seen by Provider: 08/13/16 12:58 Historian: Patient - History of Present Illness Time/Duration: Prior to Arrival Symptom Onset: Gradual Symptom Course: Worsening Quality: Aching Severity Level: Severe Activities at Onset: Rest Associated Symptoms (Text): 08/13/16 13:07 Patient complains of chronic right lower back pain following a fall several years ago. She had an MRI on 05/03/2012 with no significant findings. She has had plain films of her lower back multiple times since then. She reports that she suffered a stroke approximately one month ago and has been walking funny and this has aggravated her low back pain. There is no abdominal pain nausea vomiting diarrhea constipation or GI bleed. No genitourinary symptoms. The pain radiates chronically into her right lower extremity. She had a prescription for Percocet 10 filled on July 22, #90.. She took some Percocet this morning but the pain is still unbearable. There is no new injury or trauma. Past Medical History - Past History Past History: No Previous - Infectious Disease Hx of Infectious Diseases: None - Tetanus Immunization Tetanus Immunization: Unknown - Cardiac Hx Cardiac Disorders: Yes Hx Congestive Heart Failure: Yes Hx Hypertension: Yes - Pulmonary Hx Chronic Obstructive Pulmonary Disease (COPD): Yes - Neurological Hx Neurological Disorder: No - HEENT Hx HEENT Disorder: No - Renal Hx Renal Disorder: No - Endocrine/Metabolic Hx Diabetes Mellitus Type 2: Yes - Hematological/Oncological Hx Blood Disorders: No - Integumentary Hx Dermatological Disorder: No - Musculoskeletal/Rheumatological Hx Musculoskeletal Disorders: Yes Hx Back Pain: Yes Hx Herniated Disk: Yes - Gastrointestinal Hx Gastrointestinal Disorders: No - Genitourinary/Gynecological Hx Genitourinary Disorders: No - Psychiatric Hx Psychophysiologic Disorder: Yes Hx Anxiety: Yes Hx Depression: Yes Hx Substance Use: No - Past Surgical History Past Surgical History: No Previous - Surgical History Hx Section: Yes Hx Tonsillectomy: Yes Hx Tubal Ligation: Yes (REVERSED) - Anesthesia Hx Anesthesia: No Hx Anesthesia Reactions: No - Suicidal Assessment Feels Threatened In Home Enviroment: No Family/Social History - Physician Review Nursing Documentation Reviewed: Yes Family/Social History: Unknown Family HX Smoking Status: Former Smoker (Quit smoking 9 years ago) Hx Alcohol Use: No Hx Substance Use: No Hx Substance Use Treatment: No Allergies/Home Meds Allergies/Adverse Reactions: Allergies latex Allergy (Verified 07/07/16 16:30) RASH Penicillins Allergy (Verified 07/07/16 16:30) RASH Home Medications: Home Meds Medication Instructions Recorded Confirmed Acetaminophen/Oxycodone Hydr 1 tab PO Q6H PRN 04/14/13 08/13/16 [Percocet 10/325 mg Tab] Albuterol HFA [Ventolin HFA 90 1 puff IH Q4 PRN 04/14/13 08/13/16 mcg/actuation (8 g)] Aspirin [Aspirin Chewable] 81 mg PO DAILY 05/01/16 08/13/16 Clopidogrel [Plavix] 75 mg PO DAILY 05/01/16 08/13/16 Atorvastatin [Lipitor] 20 mg PO DAILY 07/07/16 08/13/16 Docusate [Colace] 100 mg PO BID 07/07/16 08/13/16 Lisinopril/Hydrochlorothiazide 12.5 each PO DAILY 07/07/16 08/13/16 [Lisinopril-Hctz 10-12.5 mg Tab] Diazepam 5 mg PO BID 08/13/16 08/13/16 Escitalopram [Lexapro] 20 mg PO DAILY 08/13/16 08/13/16 Nabumetone 500 mg PO DAILY 08/13/16 08/13/16 Pantoprazole [Protonix] 40 mg PO DAILY 08/13/16 08/13/16 Salmeterol Xinafoate/Fluticaso 1 puff IH DAILY 08/13/16 08/13/16 [Advair Hfa 45-21] Zolpidem [Ambien] 10 mg PO DAILY 08/13/16 08/13/16 Review of Systems - Physician Review All systems were reviewed & negative as marked: Yes - Review of Systems Constitutional: Normal Respiratory: Normal Cardiovascular: Normal Gastrointestinal: Normal Genitourinary Female: Normal Musculoskeletal: Back Pain. absent: Neck Pain Neurological: Gait Changes. absent: Headache, Dizziness, Focal Weakness, Speech Changes, Facial Droop, Disequilibrium, Seizure Physical Exam Vital Signs Temp Pulse Resp BP Pulse Ox 08/13/16 14:03 81 18 135/69 96 08/13/16 13:06 98.0 F 91 H 18 139/74 99 Temperature: Afebrile Blood Pressure: Normal Pulse: Regular Respiratory Rate: Normal Appearance: Positive for: Well-Appearing, Non-Toxic, Uncomfortable Pain Distress: Moderate Mental Status: Positive for: Alert and Oriented X 3 - Systems Exam Head: Present: Atraumatic, Normocephalic Neck: Present: Normal Range of Motion Respiratory/Chest: Present: Clear to Auscultation, Good Air Exchange. No: Respiratory Distress, Accessory Muscle Use Cardiovascular: Present: Regular Rate and Rhythm, Normal S1, S2. No: Murmurs Abdomen: Present: Normal Bowel Sounds. No: Tenderness, Distention, Peritoneal Signs Back: Present: Normal Inspection, Paraspinal Tenderness (Right paraspinous lumbosacral tenderness and spasm). No: CVA Tenderness, Midline Tenderness, Pain with Leg Raise Upper Extremity: Present: Normal Inspection. No: Cyanosis, Edema Lower Extremity: Present: Normal Inspection. No: Edema Neurological: Present: GCS=15, CN II-XII Intact, Speech Normal, Motor Func Grossly Intact. No: Normal Sensory Function, Normal Cerebellar Funct Skin: Present: Warm, Dry, Normal Color. No: Rashes Psychiatric: Present: Alert, Oriented x 3, Normal Insight, Normal Concentration Medical Decision Making ED Course and Treatment: 08/13/16 13:11 I do not feel that any imaging is indicated acutely at this time, as this is a chronic problem and there has been no trauma. 08/13/16 14:21 Symptoms have improved. Patient reports that her pain has been worse since her stroke and she has been taking her Percocet more frequently than prescribed and she is almost out and needs a new prescription. I discussed with her that I would not give her any additional Percocet as she needs to discuss this with her prescribing physician. - Medication Orders Current Medication Orders: Cyclobenzaprine HCl (Flexeril) 10 mg PO ONCE CARLIE Last Admin: 08/13/16 13:35 Dose: 10 mg Discontinued Medications Ketorolac Tromethamine (Toradol) 60 mg IM ONCE ONE Stop: 08/13/16 13:12 Last Admin: 08/13/16 13:35 Dose: 60 mg Disposition/Present on Arrival - Present on Arrival Any Indicators Present on Arrival: No History of DVT/PE: No History of Uncontrolled Diabetes: No Urinary Catheter: No History of Decub. Ulcer: No History Surgical Site Infection Following: None - Disposition Have Diagnosis and Disposition been Completed?: Yes Diagnosis: Chronic low back pain Disposition: HOME/ ROUTINE Disposition Time: 14:22 Patient Plan: Discharge Condition: GOOD Discharge Instructions (ExitCare): Chronic Back Pain (ED)
[2016-08-13 14:03] VITALS: BP 135/69; PULSE 81; O2SAT 96
== END 2016-08-13 14:33 | disposition home or self-care (01) ==
LOC: ED 12:56
DX: G89.29 Other chronic pain (principal); M54.5 Low back pain
CPT/HCPCS: 96372; 99283; J1885

== ENCOUNTER 2017-03-07 19:51 | Emergency (ER) | payer MEDICAID ==
[2017-03-07 21:17] VITALS: BMI 30.2
[2017-03-07 21:24] VITALS: TEMP 98.1
--- NOTE | 2017-03-07 21:41 | ED PDOC ---
Arrival/HPI - General Chief Complaint: Back Pain Time Seen by Provider: 03/07/17 21:37 Historian: Patient - History of Present Illness Narrative History of Present Illness (Text): 03/07/17 21:38 56 year old female, whose history includes arthritis, presents to the Emergency department complaining of worsened chronic lower back pain. Pain originated four years ago after a fall. Patient states her pain worsened today when she began to experience muscle spasms in the back. Pain radiates into left thigh. Patient denies any urinary symptoms, fever, chills, chest pain, shortness of breath, nausea, vomiting, diarrhea, neck pain, headache, dizziness or any other complaints. Time/Duration: Other (chronic, 4 years ago) Symptom Onset: Gradual Symptom Course: Unchanged Context: Home Past Medical History - Provider Review Nursing Documentation Reviewed: Yes - Past History Past History: No Previous - Infectious Disease Hx of Infectious Diseases: None - Tetanus Immunization Tetanus Immunization: Unknown - Cardiac Hx Cardiac Disorders: Yes Hx Congestive Heart Failure: Yes Hx Hypertension: Yes - Pulmonary Hx Chronic Obstructive Pulmonary Disease (COPD): Yes (uses O2) - Neurological Hx Neurological Disorder: No - HEENT Hx HEENT Disorder: No - Renal Hx Renal Disorder: No - Endocrine/Metabolic Hx Diabetes Mellitus Type 2: Yes - Hematological/Oncological Hx Blood Disorders: No - Integumentary Hx Dermatological Disorder: No - Musculoskeletal/Rheumatological Hx Musculoskeletal Disorders: Yes Hx Back Pain: Yes Hx Herniated Disk: Yes - Gastrointestinal Hx Gastrointestinal Disorders: No - Genitourinary/Gynecological Hx Genitourinary Disorders: No - Psychiatric Hx Psychophysiologic Disorder: Yes Hx Anxiety: Yes Hx Depression: Yes Hx Substance Use: No - Past Surgical History Past Surgical History: No Previous - Surgical History Hx Section: Yes Hx Tonsillectomy: Yes Hx Tubal Ligation: Yes (REVERSED) - Anesthesia Hx Anesthesia: No Hx Anesthesia Reactions: No - Suicidal Assessment Feels Threatened In Home Enviroment: No Family/Social History - Physician Review Nursing Documentation Reviewed: Yes Family/Social History: Unknown Family HX Smoking Status: Former Smoker Hx Alcohol Use: No Hx Substance Use: No Hx Substance Use Treatment: No Allergies/Home Meds Allergies/Adverse Reactions: Allergies latex Allergy (Verified 07/07/16 16:30) RASH Penicillins Allergy (Verified 07/07/16 16:30) RASH Home Medications: Home Meds Medication Instructions Recorded Confirmed Acetaminophen/Oxycodone Hydr 1 tab PO Q6H PRN 04/14/13 03/07/17 [Percocet 10/325 mg Tab] Albuterol HFA [Ventolin HFA 90 1 puff IH Q4 PRN 04/14/13 03/07/17 mcg/actuation (8 g)] Aspirin [Aspirin Chewable] 81 mg PO DAILY 05/01/16 03/07/17 Clopidogrel [Plavix] 75 mg PO DAILY 05/01/16 03/07/17 Atorvastatin [Lipitor] 20 mg PO DAILY 07/07/16 03/07/17 Docusate [Colace] 100 mg PO BID 07/07/16 03/07/17 Lisinopril/Hydrochlorothiazide 12.5 each PO DAILY 07/07/16 03/07/17 [Lisinopril-Hctz 10-12.5 mg Tab] Diazepam 5 mg PO BID 08/13/16 03/07/17 Escitalopram [Lexapro] 20 mg PO DAILY 08/13/16 03/07/17 Nabumetone 500 mg PO DAILY 08/13/16 03/07/17 Pantoprazole [Protonix] 40 mg PO DAILY 08/13/16 03/07/17 Salmeterol Xinafoate/Fluticaso 1 puff IH DAILY 08/13/16 03/07/17 [Advair Hfa 45-21] Zolpidem [Ambien] 10 mg PO DAILY 08/13/16 03/07/17 Review of Systems - Physician Review All systems were reviewed & negative as marked: Yes - Review of Systems Constitutional: absent: Fevers, Night Sweats Respiratory: absent: SOB Cardiovascular: absent: Chest Pain Gastrointestinal: absent: Diarrhea, Nausea, Vomiting Genitourinary Female: absent: Dysuria, Frequency, Hematuria, Urine Output Changes Musculoskeletal: Back Pain. absent: Neck Pain Neurological: absent: Headache, Dizziness Physical Exam Vital Signs Reviewed: Yes Vital Signs Temp Pulse Resp BP Pulse Ox 03/07/17 21:23 98.1 F 80 20 166/91 H 100 Temperature: Afebrile Blood Pressure: Hypertensive Pulse: Regular Respiratory Rate: Normal Appearance: Positive for: Well-Appearing, Non-Toxic, Comfortable Pain Distress: None Mental Status: Positive for: Alert and Oriented X 3 - Systems Exam Head: Present: Atraumatic, Normocephalic Pupils: Present: PERRL Extroacular Muscles: Present: EOMI Conjunctiva: Present: Normal Mouth: Present: Moist Mucous Membranes Neck: Present: Normal Range of Motion Respiratory/Chest: Present: Clear to Auscultation, Good Air Exchange. No: Respiratory Distress, Accessory Muscle Use Cardiovascular: Present: Regular Rate and Rhythm, Normal S1, S2. No: Murmurs Abdomen: Present: Normal Bowel Sounds. No: Tenderness, Distention, Peritoneal Signs Back: Present: CVA Tenderness (tenderness to palpation with radicular pain to L2 , L3) Upper Extremity: Present: Normal Inspection. No: Cyanosis, Edema Lower Extremity: Present: Normal Inspection. No: Edema Neurological: Present: GCS=15, CN II-XII Intact, Speech Normal Skin: Present: Warm, Dry, Normal Color. No: Rashes Psychiatric: Present: Alert, Oriented x 3, Normal Insight, Normal Concentration Medical Decision Making ED Course and Treatment: 03/07/17 21:38 Impression: 56 year old female presents to the Emergency department complaining of worsened chronic back pain. Plan: -- Valium, Toradol -- Reassess and disposition Prior Visits: Notes and results from previous visits were reviewed. Patient was last seen in the emergency department on 08/13/16 for the same complaint and was discharged home. Progress Notes: - Medication Orders Current Medication Orders: Discontinued Medications Diazepam (Valium) 5 mg PO STAT STA PRN Reason: Protocol Stop: 03/07/17 21:39 Last Admin: 03/07/17 21:48 Dose: 5 mg Ketorolac Tromethamine (Toradol) 60 mg IM STAT STA Stop: 03/07/17 21:38 Last Admin: 03/07/17 21:47 Dose: 60 mg MAR Pain Assessment Document 03/07/17 21:47 [email or web address] (Rec: 03/07/17 21:48 [email or web address] [id number]) Pain Reassessment Is this a pain reassessment? No Sleep Is patient sleeping during reassessment? No Presence of Pain Presence of Pain Yes Pain Scale Used Pain Scale Used Numeric Location Upper or Lower Lower Pain Location Body Site Back Description Description Constant Intensity of Pain at present 8 Pain Behavior Facial Grimacing Aggravating Factors Changing Position Alleviating Factors/Management Position Change Techniques Alleviating Factors Medication IM Administration Charges Document 03/07/17 21:47 [email or web address] (Rec: 03/07/17 21:48 [facility] [id number]) Injection Site MAR Injection Site Left Gluteus Dorian Charges for Administration # of IM Administrations 1 - Scribe Statement The provider has reviewed the documentation as recorded by the Scribe Robbin Kent All medical record entries made by the Scribe were at my direction and personally dictated by me. I have reviewed the chart and agree that the record accurately reflects my personal performance of the history, physical exam, medical decision making, and the department course for this patient. I have also personally directed, reviewed, and agree with the discharge instructions and disposition. Disposition/Present on Arrival - Present on Arrival Any Indicators Present on Arrival: No History of DVT/PE: No History of Uncontrolled Diabetes: No Urinary Catheter: No History of Decub. Ulcer: No History Surgical Site Infection Following: None - Disposition Have Diagnosis and Disposition been Completed?: Yes Diagnosis: Back muscle spasm Disposition: HOME/ ROUTINE Disposition Time: 22:42 Patient Plan: Discharge Patient Problems: Current Active Problems Problem Status Onset Back muscle spasm Acute Condition: FAIR Discharge Instructions (ExitCare): Muscle Spasm (ED) Print Language: LITHUANIAN Additional Instructions: Apply heat packs to area Prescriptions: diaZEpam [Valium] 5 mg PO BID #10 tab Referrals: Kim Saucedo MD [Primary Care Provider] - Follow up with primary Forms: [employer] (Nepali)
[2017-03-07 22:43] VITALS: BP 110/64; PULSE 85; RESP 18
[2017-03-07 22:49] VITALS: O2SAT 98
== END 2017-03-07 22:49 | disposition home or self-care (01) ==
LOC: ED 19:51
DX: M62.830 Muscle spasm of back (principal); E11.9 Type 2 diabetes mellitus without complications; I50.9 Heart failure, unspecified; I10 Essential (primary) hypertension; Z87.891 Personal history of nicotine dependence
CPT/HCPCS: 96372; 99282; J1885

== ENCOUNTER 2017-06-17 00:01 | Inpatient (IN) | payer MEDICAID ==
[2017-06-17 00:07] VITALS: BMI 32.2
--- NOTE | 2017-06-17 00:21 | ED PDOC ---
Arrival/HPI - General Chief Complaint: Chest Pain Time Seen by Provider: 06/17/17 00:03 Historian: Patient - History of Present Illness Narrative History of Present Illness (Text): 06/17/17 00:20 Elle Baker is a 57 year old female, whose past medical history includes hypertension, TIA, and cardiac catheterization, who presents to the emergency department complaining of chest pain. Patient states she has been experiencing chest pressure since yesterday evening radiating to her left arm and left neck. Patient also notes her blood pressure has been elevated for the past 3 days. Patient took 4 baby aspirin and was given Nitroglycerin en route by EMS with some relief. Patient denies any fever, chills, shortness of breath, abdominal pain, nausea, vomiting, diarrhea, urinary symptoms, back pain, neck pain, headache, dizziness, or any other complaints. PMD: Dr. Shaw Symptom Onset: Gradual Symptom Course: Unchanged Activities at Onset: Light Context: Home Past Medical History - Provider Review Nursing Documentation Reviewed: Yes - Past History Past History: No Previous - Infectious Disease Hx of Infectious Diseases: None - Tetanus Immunization Tetanus Immunization: Unknown - Cardiac Hx Cardiac Disorders: Yes Hx Congestive Heart Failure: Yes Hx Hypertension: Yes - Pulmonary Hx Chronic Obstructive Pulmonary Disease (COPD): Yes (uses O2) - Neurological Hx Neurological Disorder: No - HEENT Hx HEENT Disorder: No - Renal Hx Renal Disorder: No - Endocrine/Metabolic Hx Diabetes Mellitus Type 2: Yes - Hematological/Oncological Hx Blood Disorders: No - Integumentary Hx Dermatological Disorder: No - Musculoskeletal/Rheumatological Hx Musculoskeletal Disorders: Yes Hx Back Pain: Yes Hx Herniated Disk: Yes - Gastrointestinal Hx Gastrointestinal Disorders: No - Genitourinary/Gynecological Hx Genitourinary Disorders: No - Psychiatric Hx Psychophysiologic Disorder: Yes Hx Anxiety: Yes Hx Depression: Yes Hx Substance Use: No - Past Surgical History Past Surgical History: No Previous - Surgical History Hx Section: Yes Hx Tonsillectomy: Yes Hx Tubal Ligation: Yes (REVERSED) - Anesthesia Hx Anesthesia: No Hx Anesthesia Reactions: No Hx Malignant Hyperthermia: No - Suicidal Assessment Feels Threatened In Home Enviroment: No Family/Social History - Physician Review Nursing Documentation Reviewed: Yes Family/Social History: Hypertension Smoking Status: Former Smoker Hx Alcohol Use: No Hx Substance Use: No Hx Substance Use Treatment: No Allergies/Home Meds Allergies/Adverse Reactions: Allergies latex Allergy (Verified 06/17/17 00:03) RASH Penicillins Allergy (Verified 06/17/17 00:03) RASH Home Medications: Home Meds Medication Instructions Recorded Confirmed Acetaminophen/Oxycodone Hydr 1 tab PO Q6H PRN 04/14/13 06/17/17 [Percocet 10/325 mg Tab] Albuterol HFA [Ventolin HFA 90 1 puff IH Q4 PRN 04/14/13 06/17/17 mcg/actuation (8 g)] Aspirin [Aspirin Chewable] 81 mg PO DAILY 05/01/16 06/17/17 Clopidogrel [Plavix] 75 mg PO DAILY 05/01/16 06/17/17 Atorvastatin [Lipitor] 20 mg PO DAILY 07/07/16 06/17/17 Lisinopril/Hydrochlorothiazide 12.5 each PO DAILY 07/07/16 06/17/17 [Lisinopril-Hctz 10-12.5 mg Tab] Salmeterol Xinafoate/Fluticaso 1 puff IH DAILY 08/13/16 06/17/17 [Advair Hfa 45-21] Zolpidem [Ambien] 10 mg PO DAILY 08/13/16 06/17/17 Review of Systems - Physician Review All systems were reviewed & negative as marked: Yes - Review of Systems Constitutional: Normal. absent: Fevers Eyes: Normal ENT: Normal Respiratory: Normal. absent: SOB, Cough Cardiovascular: Chest Pain Gastrointestinal: Normal. absent: Abdominal Pain, Diarrhea, Nausea, Vomiting Genitourinary Female: Normal. absent: Dysuria, Frequency, Hematuria, Urine Output Changes Musculoskeletal: Normal. absent: Back Pain, Neck Pain Skin: Normal. absent: Rash Neurological: Normal. absent: Headache, Dizziness Endocrine: Normal Hemo/Lymphatic: Normal Psychiatric: Normal Physical Exam Vital Signs Reviewed: Yes Vital Signs Pulse Resp BP Pulse Ox 06/17/17 02:19 88 18 161/88 H 98 06/17/17 00:17 89 18 154/77 H 97 Temperature: Afebrile Blood Pressure: Normal Pulse: Regular Respiratory Rate: Normal Appearance: Positive for: Well-Appearing, Non-Toxic, Comfortable Pain Distress: None Mental Status: Positive for: Alert and Oriented X 3 - Systems Exam Head: Present: Atraumatic, Normocephalic Pupils: Present: PERRL Extroacular Muscles: Present: EOMI Conjunctiva: Present: Normal Mouth: Present: Moist Mucous Membranes Neck: Present: Normal Range of Motion Respiratory/Chest: Present: Clear to Auscultation, Good Air Exchange. No: Respiratory Distress, Accessory Muscle Use Cardiovascular: Present: Regular Rate and Rhythm, Normal S1, S2. No: Murmurs Abdomen: No: Tenderness, Distention, Peritoneal Signs Back: Present: Normal Inspection Upper Extremity: Present: Normal Inspection. No: Cyanosis, Edema Lower Extremity: Present: Normal Inspection. No: Edema Neurological: Present: GCS=15, CN II-XII Intact, Speech Normal Skin: Present: Warm, Dry, Normal Color. No: Rashes Psychiatric: Present: Alert, Oriented x 3, Normal Insight, Normal Concentration Medical Decision Making ED Course and Treatment: 06/17/17 00:20 Impression: 57 year old female complaining of chest pressure radiating to her left arm/neck and high blood pressure. Plan: -- EKG -- CXR -- Labs, cardiac enzymes -- Reassess and disposition Prior Visits: Notes and results from previous visits were reviewed. Progress Notes: Reviewed EKG, NSR at [address]-segment elevations or depressions, no T-wave inversions, normal intervals. 06/17/17 01:00 CXR reviewed, shows no acute processes. 06/17/17 01:38 Case discussed with medical coding specialist assistant plant control operator, who is aware and agrees with plan. 06/17/17 02:[address] Rajni Graff, who is aware and agrees with plan. Accepts pt in to hospitalist service. Pt will go to Telemetry observation for chest pain. - Lab Interpretations Lab Results: 06/17/17 00:36 06/17/17 00:36 Lab Results 06/17/17 08:07: Troponin I < 0.01 06/17/17 07:59: TSH 3rd Generation 4.17 06/17/17 07:59: Hemoglobin A1c 5.8 06/17/17 07:59: Phosphorus 3.5, Magnesium 2.1, Triglycerides 156, Cholesterol 204 H, LDL Cholesterol Direct 127, HDL Cholesterol 44 06/17/17 07:33: POC Glucose (mg/dL) 104 06/17/17 00:36: WBC 7.4 D, RBC 4.29, Hgb 13.2, Hct 37.8, MCV 88.1, MCH 30.8, MCHC 34.9, RDW 12.5, Plt Count 274, MPV 9.1 06/17/17 00:36: Sodium 140, Potassium 3.7, Chloride 101, Carbon Dioxide 27, Anion Gap 17, BUN 16, Creatinine 0.9, Est GFR ( Amer) > 60, Est GFR (Non- Af Amer) > 60, Random Glucose 114 H, Calcium 9.4, Total Bilirubin 0.5, AST 30, ALT 32, Alkaline Phosphatase 94, Lactate Dehydrogenase 515, Total Creatine Kinase 73, Troponin I < 0.01, Total Protein 7.5, Albumin 4.5, Globulin 3.0, Albumin/Globulin Ratio 1.5 06/17/17 00:36: PT 11.7, INR 1.03, APTT 30.7 I have reviewed the lab results: Yes - RAD Interpretation Radiology Orders: 06/17/17 00:35 CHEST PORTABLE [RAD] Stat Wrist Hemmer: ED Physician - EKG Interpretation Interpreted by ED Physician: Yes Type: 12 lead EKG - Medication Orders Current Medication Orders: Albuterol Sulfate (Albuterol 0.042% Inhal Susan (1.25mg/3ml) Ud) 1.25 mg IH [id number] PRN PRN Reason: Shortness of Breath Albuterol/Ipratropium (Duoneb 3 Mg/0.5 Mg (3 Ml) Ud) 3 ml IH [id number] [facility] Last Admin: 06/18/17 21:00 Dose: 3 ml Aspirin (Aspirin Chewable) 81 mg PO DAILY [facility] Last Admin: 06/18/17 09:55 Dose: 81 mg Atorvastatin Calcium (Lipitor) 20 mg PO DAILY [facility] Last Admin: 06/18/17 09:55 Dose: 20 mg Clopidogrel Bisulfate (Plavix) 75 mg PO DAILY [facility] Last Admin: 06/18/17 09:54 Dose: 75 mg Hydrochlorothiazide (Microzide) 12.5 mg PO DAILY [facility] Last Admin: 06/18/17 09:55 Dose: 12.5 mg Lisinopril (Zestril) 10 mg PO DAILY [facility] Last Admin: 06/18/17 09:54 Dose: 10 mg MAR Pulse and Blood Pressure Document 06/18/17 09:54 (Rec: 06/18/17 09:[address] [id number]) Pulse Pulse Rate (60-90) 84 Blood Pressure Blood Pressure (100/60-150/90) 126/79 Naproxen (Anaprox Ds) 550 mg PO BID [facility] Last Admin: 06/18/17 17:27 Dose: 550 mg Salmeterol Xinafoate /Fluticaso [Advair Hfa 45-21] (Home Med ) 1 puff IH DAILY [facility] Last Admin: 06/18/17 10:00 Dose: Oxycodone/Acetaminophen (Percocet 10/325 Mg Tab) 1 tab PO Q6H PRN PRN Reason: Pain, moderate (4-7) Last Admin: 06/18/17 15:21 Dose: 1 tab ALVIN Pain Assessment Document 06/18/17 15:21 (Rec: 06/18/17 15:21 [id number]) Pain Reassessment Is this a pain reassessment? Yes Pain Scale Used Pain Scale Used Numeric Location Pain Location Body Site Back Description Intensity of Pain at present 7 Re-Assess: MAR Pain Assessment Document 06/18/17 16:21 VM (Rec: 06/18/17 17:10 [id number]) Pain Reassessment Is this a pain reassessment? Yes Presence of Pain Presence of Pain No Pantoprazole Sodium (Protonix Ec Tab) 20 mg PO 0600,1600 [facility] Last Admin: 06/18/17 17:27 Dose: 20 mg Zolpidem Tartrate (Ambien) 5 mg PO HS [facility] PRN Reason: Protocol Last Admin: 06/18/17 22:27 Dose: 5 mg Behavioural Document 06/18/17 22:27 [facility] (Rec: 06/18/17 22:27 [facility] [id number]) Maintenance Maintenance Dose Yes Discontinued Medications Morphine Sulfate (Morphine) 2 mg IVP STAT STA Stop: 06/17/17 02:03 Last Admin: 06/17/17 02:14 Dose: 2 mg MAR Pain Assessment Document 06/17/17 02:14 IT (Rec: 06/17/17 02:14 [id number]) Pain Reassessment Is this a pain reassessment? No Sleep Is patient sleeping during reassessment? No Presence of Pain Presence of Pain Yes Pain Scale Used Pain Scale Used Numeric Location Left, Right or Bilateral Left IVP Administration Document 06/17/17 02:14 IT (Rec: 06/17/17 02:14 [id number]) Charges for Administration # of IVP Administrations 1 Nitroglycerin (Nitro-Bid 2% Oint) 1 ea TOP ONCE STA Stop: 06/17/17 01:39 Last Admin: 06/17/17 02:14 Dose: 1 ea Nitroglycerin (Nitrostat Sl Tab) 0.4 mg SL Q5M CARLIE Stop: 06/17/17 04:41 Last Admin: 06/17/17 05:39 Dose: 0.4 mg Comments: bp 140/82 - Scribe Statement The provider has reviewed the documentation as recorded by the Momoibbre Vu Provider Scribe Attestation: All medical record entries made by the Scribe were at my direction and personally dictated by me. I have reviewed the chart and agree that the record accurately reflects my personal performance of the history, physical exam, medical decision making, and the department course for this patient. I have also personally directed, reviewed, and agree with the discharge instructions and disposition. Disposition/Present on Arrival - Present on Arrival Any Indicators Present on Arrival: No History of DVT/PE: No History of Uncontrolled Diabetes: No Urinary Catheter: No History of Decub. Ulcer: No History Surgical Site Infection Following: None - Disposition Have Diagnosis and Disposition been Completed?: Yes Diagnosis: Chest pain Disposition: HOSPITALIZED Disposition Time: 02:38 Patient Plan: Observation Patient Problems: Current Active Problems Problem Status Onset Chest pain Acute Condition: STABLE
[2017-06-17 00:58] LABS: INR 1.03 (0.93-1.08); PROTHROMBIN TIME 11.7 SECONDS (9.4-12.5)
[2017-06-17 00:59] LABS: ALB/GLOB RATIO 1.5 (1.1-1.8); ALBUMIN 4.5 g/dL (3.0-4.8); ALT/SGPT 32 U/L (7-56); AST/SGOT 30 U/L (14-36); BLOOD UREA NITROGEN 16 mg/dL (7-21); CALCIUM 9.4 mg/dL (8.4-10.5); GFR AFRICAN-AMERICAN > 60; GFR NON-AFRICAN AMERICAN > 60; PARTIAL THROMBOPLASTIN TIME 30.7 Seconds (25.1-36.5)
[2017-06-17 01:03] LABS: HEMOGLOBIN 13.2 g/dL (12.0-16.0); MEAN CELL VOLUME 88.1 fl (80.0-105.0); MEAN CORPUSCULAR HEMOGLOBIN 30.8 pg (25.0-35.0); MEAN CORPUSCULAR HGB CONC 34.9 g/dl (31.0-37.0); MEAN PLATELET VOLUME 9.1 fl (7.0-11.0); RBC 4.29 10^6/uL (3.5-6.1); RED CELL DISTRIBUTION WIDTH 12.5 % (11.5-14.5); WHITE BLOOD COUNT 7.4 10^3/ul (4.5-11.0)
[2017-06-17 01:10] LABS: TROPONIN I < 0.01 ng/mL
[2017-06-17] MEDS ORDERED: Nitroglycerin 2% Ointment Foilpak UD TOP STA (01:38)
[2017-06-17] MEDS ORDERED: Morphine 4 mg/ml ISec IVP STA (02:02)
--- NOTE | 2017-06-17 02:59 | CP.PCM.HP ---
History of Present Illness - History of Present Illness History of Present Illness: Tonia Mckinley, PGY1, H&P for Dr Marilee Graff: CC: chest pain 57 year old female, with PMH hypertension, TIA, depression, anxiety, presents for left sided chest pain that started yesterday evening. Describes it as sharp , radiating to left arm and left neck. Denies sob, diaphoresis, f/c, abdominal pain, n/v/d, leg swelling, urinary symptoms. Pt received 4 baby ASA and Nitro in ED by EMS with some relief. PMD: Dr. Shaw Cardio: does not remember name (in [place]) PMH: HTN, depression, anxiety, herniated disks, TIA PSH: SH: denies smoking, alcohol, or drug use FH: father of colon CA, mother had heart failure Meds: reviewed Allergies: latex, penicillins Present on Admission - Present on Admission Any Indicators Present on Admission: No History of DVT/PE: No History of Uncontrolled Diabetes: No Urinary Catheter: No Decubitus Ulcer Present: No Review of Systems - Review of Systems All systems: reviewed and no additional remarkable complaints except Review of Systems: as per HPI Past Patient History - Infectious Disease Hx of Infectious Diseases: None - Tetanus Immunizations Tetanus Immunization: Unknown - Past Social History Smoking Status: Former Smoker - CARDIAC Hx Cardiac Disorders: Yes Hx Congestive Heart Failure: Yes Hx Hypertension: Yes - PULMONARY Hx Chronic Obstructive Pulmonary Disease (COPD): Yes (uses O2) - NEUROLOGICAL Hx Neurological Disorder: No - HEENT Hx HEENT Problems: No - RENAL Hx Chronic Kidney Disease: No - ENDOCRINE/METABOLIC Hx Diabetes Mellitus Type 2: Yes - HEMATOLOGICAL/ONCOLOGICAL Hx Blood Disorders: No - INTEGUMENTARY Hx Dermatological Problems: No - MUSCULOSKELETAL/RHEUMATOLOGICAL Hx Musculoskeletal Disorders: Yes Hx Back Pain: Yes Hx Herniated Disk: Yes - GASTROINTESTINAL Hx Gastrointestinal Disorders: No - GENITOURINARY/GYNECOLOGICAL Hx Genitourinary Disorders: No - PSYCHIATRIC Hx Psychophysiologic Disorder: Yes Hx Anxiety: Yes Hx Depression: Yes Hx Substance Use: No - SURGICAL HISTORY Hx Section: Yes Hx Tonsillectomy: Yes Hx Tubal Ligation: Yes (REVERSED) - ANESTHESIA Hx Anesthesia: No Hx Anesthesia Reactions: No Hx Malignant Hyperthermia: No Meds Allergies/Adverse Reactions: Allergies Allergy/AdvReac Type Severity Reaction Status Date / Time latex Allergy RASH Verified 06/17/17 00:03 Penicillins Allergy RASH Verified 06/17/17 00:03 Physical Exam - Constitutional Appears: Non-toxic, No Acute Distress - Head Exam Head Exam: ATRAUMATIC, NORMOCEPHALIC - Eye Exam Eye Exam: EOMI, PERRL. absent: Conjunctival injection, Nystagmus, Scleral icterus Pupil Exam: NORMAL ACCOMODATION, PERRL. absent: Irregular, Miosis, Mydriatic, Unequal - ENT Exam ENT Exam: Mucous Membranes Moist - Neck Exam Neck exam: Positive for: Full Rom - Respiratory Exam Respiratory Exam: Chest Wall Tenderness, Clear to Auscultation Bilateral, NORMAL BREATHING PATTERN. absent: Accessory Muscle Use, Rhonchi, Wheezes - Cardiovascular Exam Cardiovascular Exam: RRR, +S1, +S2. absent: Systolic Murmur - GI/Abdominal Exam GI & Abdominal Exam: Normal Bowel Sounds, Soft. absent: Distended, Firm, Guarding, Mass, Rebound, Rigid, Tenderness - Extremities Exam Extremities exam: Positive for: normal inspection. Negative for: calf tenderness, pedal edema - Back Exam Back exam: NORMAL INSPECTION - Neurological Exam Neurological exam: Alert, Oriented x3 - Psychiatric Exam Psychiatric exam: Normal Affect, Normal Mood - Skin Skin Exam: Dry, Normal Color, Warm Results - Vital Signs Recent Vital Signs: Last Vital Signs Temp Pulse 88 06/17/17 02:19 Resp 18 06/17/17 02:19 BP 161/88 H 06/17/17 02:19 Pulse Ox 98 06/17/17 02:19 - Labs Result Diagrams: 06/17/17 00:36 06/17/17 00:36 Labs: Laboratory Results - last 24 hr 06/17/17 06/17/17 06/17/17 00:36 00:36 00:36 WBC 7.4 D RBC 4.29 Hgb 13.2 Hct 37.8 MCV 88.1 MCH 30.8 MCHC 34.9 RDW 12.5 Plt Count 274 MPV 9.1 PT 11.7 INR 1.03 APTT 30.7 Sodium 140 Potassium 3.7 Chloride 101 Carbon Dioxide 27 Anion Gap 17 BUN 16 Creatinine 0.9 Est GFR ( Amer) > 60 Est GFR (Non-Af Amer) > 60 Random Glucose 114 H Calcium 9.4 Total Bilirubin 0.5 AST 30 ALT 32 Alkaline Phosphatase 94 Lactate Dehydrogenase 515 Total Creatine Kinase 73 Troponin I < 0.01 Total Protein 7.5 Albumin 4.5 Globulin 3.0 Albumin/Globulin Ratio 1.5 Assessment & Plan - Assessment and Plan (Free Text) Assessment: 56 year old Turkish female with a PMH of HTN, depression, anxiety, herniated disks, TIA, presents for chest pain: Chest pain, r/o ACS: - reproducible on exam - EKG NSR at [address]-segment elevations or depressions, no T-wave inversions, normal intervals. - lipid panel, TSH, A1C - Echo 07/2016 normal ef. - home ASA 81, lipitor 20, plavix 75, lisinopril 10 - serial trops and EKG in AM - Naproxen bid - CXR neg - Cardio consulted. f/u recs Hx of HTN: - Continue home medications Hx of Anxiety: - Continue home ambien Hx of COPD: - c/w home Advair GI PPX: protonix DVT ppx: SCDs Discussed with Dr Marilee Graff. - Date & Time Date: 06/17/17 Time: 05:14
[2017-06-17] MEDS: Pantoprazole 20 mg EC Tab PO SCH ×2 (05:00→17:20)
[2017-06-17] MEDS: Albuterol-Ipratrop 3 mg / 0.5 (3 ml) UD IH SCH ×3 (07:39→21:20)
[2017-06-17] MEDS ORDERED: Albuterol 0.042% Inhal Sol (1.25 mg/3 mL) UD IH PRN (08:00)
[2017-06-17] MEDS: Naproxen 550 mg Tab PO SCH ×2 (09:14→17:27)
[2017-06-17] MEDS: SALMETEROL XINAFOATE IH SCH (09:26)
[2017-06-17] MEDS: FLUTICASO IH SCH (09:26)
--- NOTE | 2017-06-17 09:54 | CARD ---
APPROVED REPORT EKG Measurement Heart [id number] <Conclusion> Normal sinus rhythm Mild NSSTW changes and prolonged QTc
--- NOTE | 2017-06-17 10:01 | CARD ---
APPROVED REPORT EKG Measurement Heart [id number] <Conclusion> Normal sinus rhythm Normal ECG
--- NOTE | 2017-06-17 10:07 | RAD ---
HISTORY: pain COMPARISON: 07/07/2016 FINDINGS: LUNGS: No active pulmonary disease. PLEURA: No significant pleural effusion identified, no pneumothorax apparent. CARDIOVASCULAR: Normal. OSSEOUS STRUCTURES: No significant abnormalities. VISUALIZED UPPER ABDOMEN: Normal. OTHER FINDINGS: None. IMPRESSION: No active disease.
[2017-06-17] MEDS: Oxycodone/Acetaminophen 10/325 mg Tab PO PRN (17:26)
[2017-06-17 18:10] VITALS: O2SAT 98
--- NOTE | 2017-06-17 21:47 | CON ---
DATE: 06/17/2017 CARDIOLOGY CONSULTATION HISTORY OF PRESENT ILLNESS: The patient is a 57-year-old woman who is a terrible historian who presents with substernal pressure. She says that this is constant and still feels it. PHYSICAL EXAMINATION VITAL SIGNS: Blood pressure is 128/78, heart rate is in the 80s. NECK: Negative JVD. LUNGS: Without rales. HEART: Reveals S1, S2. EXTREMITIES: Without edema. LABORATORY DATA: Hemoglobin is 13.2. Troponins are negative x2. IMPRESSION: 1. Recurrent angina. 2. Questionable history of percutaneous transluminal coronary angioplasty and stent in the past. 3. Coronary artery disease. 4. Hypertension. 5. Hypercholesterolemia. PLAN: Given these findings, given the patient's poor history recollection as well as her continued complaints of intermittent chest pressure while at rest, we will proceed with cardiac catheterization on Monday. I have discussed risks, benefits with the patient in detail and she is agreeable. Sha Mcqueen MD [id number]
[2017-06-18] MEDS: Albuterol-Ipratrop 3 mg / 0.5 (3 ml) UD IH SCH ×4 (05:59→21:00)
[2017-06-18] MEDS: Pantoprazole 20 mg EC Tab PO SCH ×2 (06:19→17:27)
[2017-06-18] MEDS: Oxycodone/Acetaminophen 10/325 mg Tab PO PRN ×2 (06:23→15:21)
[2017-06-18] MEDS: Naproxen 550 mg Tab PO SCH ×2 (09:55→17:27)
[2017-06-18] MEDS: SALMETEROL XINAFOATE IH SCH (10:00)
[2017-06-18] MEDS: FLUTICASO IH SCH (10:00)
--- NOTE | 2017-06-18 13:30 | CP.PCM.PN ---
<Dale Heredia - Last Filed: 06/18/17 13:41> Subjective - Date & Time of Evaluation Date of Evaluation: 06/18/17 Time of Evaluation: 13:29 - Subjective Subjective: Medicine progress note Patient seen and examined at bedside this morning. No acute overnight events or new complaints reported. Has occasional chest discomfort. Pending cardiac cath tomorrow. NPO past midnight. Objective - Vital Signs/Intake and Output Vital Signs (last 24 hours): Temp Pulse Resp BP Pulse Ox 98.2 F 81 18 105/66 98 06/18/17 12:00 06/18/17 12:00 06/18/17 12:00 06/18/17 12:00 06/18/17 06:00 Intake and Output: 06/18/17 06/18/17 06:59 18:59 Intake Total 120 Balance 120 - Medications Medications: Current Medications Albuterol Sulfate (Albuterol 0.042% Inhal Susan (1.25mg/3ml) Ud) 1.25 mg IH [id number] PRN PRN Reason: Shortness of Breath Albuterol/Ipratropium (Duoneb 3 Mg/0.5 Mg (3 Ml) Ud) 3 ml IH [id number] [facility] Last Admin: 06/18/17 07:50 Dose: 3 ml Aspirin (Aspirin Chewable) 81 mg PO DAILY [facility] Last Admin: 06/18/17 09:55 Dose: 81 mg Atorvastatin Calcium (Lipitor) 20 mg PO DAILY [facility] Last Admin: 06/18/17 09:55 Dose: 20 mg Clopidogrel Bisulfate (Plavix) 75 mg PO DAILY [facility] Last Admin: 06/18/17 09:54 Dose: 75 mg Hydrochlorothiazide (Microzide) 12.5 mg PO DAILY [facility] Last Admin: 06/18/17 09:55 Dose: 12.5 mg Lisinopril (Zestril) 10 mg PO DAILY [facility] Last Admin: 06/18/17 09:54 Dose: 10 mg Naproxen (Anaprox Ds) 550 mg PO BID [facility] Last Admin: 06/18/17 09:55 Dose: 550 mg Salmeterol Xinafoate /Fluticaso [Advair Hfa 45-21] (Home Med ) 1 puff IH DAILY [facility] Last Admin: 06/18/17 10:00 Dose: Not Given Oxycodone/Acetaminophen (Percocet 10/325 Mg Tab) 1 tab PO Q6H PRN PRN Reason: Pain, moderate (4-7) Last Admin: 06/18/17 06:23 Dose: 1 tab Pantoprazole Sodium (Protonix Ec Tab) 20 mg PO 0600,1600 CARLIE Last Admin: 06/18/17 06:19 Dose: 20 mg Zolpidem Tartrate (Ambien) 5 mg PO HS CARLIE PRN Reason: Protocol Last Admin: 06/17/17 22:23 Dose: 5 mg - Labs Labs: PT 11.7 SECONDS (9.4-12.5) 06/17/17 00:36 INR 1.03 (0.93-1.08) 06/17/17 00:36 APTT 30.7 Seconds (25.1-36.5) 06/17/17 00:36 - Constitutional Appears: No Acute Distress - Head Exam Head Exam: ATRAUMATIC, NORMOCEPHALIC - Eye Exam Eye Exam: EOMI, PERRL - ENT Exam ENT Exam: Mucous Membranes Moist - Neck Exam Neck Exam: Normal Inspection - Respiratory Exam Respiratory Exam: Clear to Ausculation Bilateral. absent: Rales, Rhonchi, Wheezes - Cardiovascular Exam Cardiovascular Exam: RRR, +S1, +S2. absent: Gallop, Rubs, Murmur - GI/Abdominal Exam GI & Abdominal Exam: Soft. absent: Distended, Firm, Guarding, Rigid, Tenderness , Rebound - Neurological Exam Neurological Exam: Alert, Awake, CN II-XII Intact, Oriented x3 - Psychiatric Exam Psychiatric exam: Normal Affect, Normal Mood - Skin Skin Exam: Dry, Intact, Normal Color, Warm Assessment and Plan - Assessment and Plan (Free Text) Plan: 56 year old female with history of hypertension, depression, anxiety, herniated disks, TIA, presents for chest pain 1. Chest pain, r/o ACS - EKG NSR at 91 bpm, no ST-segment elevations or depressions, no T-wave inversions, normal intervals. - A1C 5.8, TSH within normal limits, LDL 127 - Echo from 07/2016 revealed normal LVEF - continue home ASA 81, lipitor 20, plavix 75, lisinopril 10 - troponin negative x3 - CXR revealed no active disease - Cardio consulted - Dr. Mcqueen - Plan for cardiac catherization on Monday - NPO past midnight 2. Hx of HTN - Continue home medications 3. Hx of Anxiety: - Continue home ambien 4. Hx of COPD: - c/w home Advair GI PPX: protonix DVT ppx: SCDs Patient seen and case discussed/reviewed with attending <Izabella Abdi - Last Filed: 06/18/17 14:56> Objective - Vital Signs/Intake and Output Vital Signs (last 24 hours): Temp Pulse Resp BP Pulse Ox 98.2 F 81 18 105/66 98 06/18/17 12:00 06/18/17 12:00 06/18/17 12:00 06/18/17 12:00 06/18/17 06:00 Intake and Output: 06/18/17 06/18/17 06:59 18:59 Intake Total 120 300 Output Total 300 Balance 120 0 - Medications Medications: Current Medications Albuterol Sulfate (Albuterol 0.042% Inhal Susan (1.25mg/3ml) Ud) 1.25 mg IH [id number] PRN PRN Reason: Shortness of Breath Albuterol/Ipratropium (Duoneb 3 Mg/0.5 Mg (3 Ml) Ud) 3 ml IH [id number] [facility] Last Admin: 06/18/17 13:54 Dose: 3 ml Aspirin (Aspirin Chewable) 81 mg PO DAILY [facility] Last Admin: 06/18/17 09:55 Dose: 81 mg Atorvastatin Calcium (Lipitor) 20 mg PO DAILY [facility] Last Admin: 06/18/17 09:55 Dose: 20 mg Clopidogrel Bisulfate (Plavix) 75 mg PO DAILY [facility] Last Admin: 06/18/17 09:54 Dose: 75 mg Hydrochlorothiazide (Microzide) 12.5 mg PO DAILY [facility] Last Admin: 06/18/17 09:55 Dose: 12.5 mg Lisinopril (Zestril) 10 mg PO DAILY [facility] Last Admin: 06/18/17 09:54 Dose: 10 mg Naproxen (Anaprox Ds) 550 mg PO BID [facility] Last Admin: 06/18/17 09:55 Dose: 550 mg Salmeterol Xinafoate /Fluticaso [Advair Hfa 45-21] (Home Med ) 1 puff IH DAILY [facility] Last Admin: 06/18/17 10:00 Dose: Not Given Oxycodone/Acetaminophen (Percocet 10/325 Mg Tab) 1 tab PO Q6H PRN PRN Reason: Pain, moderate (4-7) Last Admin: 06/18/17 06:23 Dose: 1 tab Pantoprazole Sodium (Protonix Ec Tab) 20 mg PO 0600,1600 CARLIE Last Admin: 06/18/17 06:19 Dose: 20 mg Zolpidem Tartrate (Ambien) 5 mg PO HS CARLIE PRN Reason: Protocol Last Admin: 06/17/17 22:23 Dose: 5 mg - Labs Labs: PT 11.7 SECONDS (9.4-12.5) 06/17/17 00:36 INR 1.03 (0.93-1.08) 06/17/17 00:36 APTT 30.7 Seconds (25.1-36.5) 06/17/17 00:36 Attending/Attestation - Attestation I have personally seen and examined this patient.: Yes I have fully participated in the care of the patient.: Yes I have reviewed all pertinent clinical information, including history, physical exam and plan: Yes Notes (Text): 06/18/17 14:54 56 year old female with past medical history of hypertension, depression, and TIA who presented with complaint of chest pain. Serial cardiac enzymes were negative. Cardiology evaluation was appreciated and plan is for cardiac cath tomorrow. She is on aspirin, plavix and statin. She is on lisinopril for hypertension. Izabella Abdi MD Hospitalist.
[2017-06-19] MEDS: Albuterol-Ipratrop 3 mg / 0.5 (3 ml) UD IH SCH ×2 (03:00→07:49)
[2017-06-19] MEDS: Pantoprazole 20 mg EC Tab PO SCH ×2 (05:45→17:12)
[2017-06-19 07:25] LABS: BASO # 0.02 K/mm3 (0.0-2.0); BASO % 0.3 % (0.0-3.0); EOS # 0.3 (0.0-0.7); EOS % 4.5 % (1.5-5.0); GRAN # 4.48 (1.4-6.5); GRAN % 63.3 % (50.0-68.0); HEMOGLOBIN 12.1 g/dL (12.0-16.0); LYMPH # 1.8 (1.2-3.4); LYMPH % 25.3 % (22.0-35.0); MEAN CELL VOLUME 89.5 fl (80.0-105.0); MEAN CORPUSCULAR HEMOGLOBIN 30.3 pg (25.0-35.0); MEAN CORPUSCULAR HGB CONC 33.8 g/dl (31.0-37.0); MEAN PLATELET VOLUME 9.1 fl (7.0-11.0); MONO # 0.5 (0.1-0.6); MONO % 6.6 % (1.0-6.0); RED CELL DISTRIBUTION WIDTH 12.5 % (11.5-14.5); WHITE BLOOD COUNT 7.1 10^3/ul (4.5-11.0)
[2017-06-19 07:46] LABS: ALB/GLOB RATIO 1.5 (1.1-1.8); ALBUMIN 3.9 g/dL (3.0-4.8); ALT/SGPT 25 U/L (7-56); AST/SGOT 26 U/L (14-36); BLOOD UREA NITROGEN 29 mg/dL (7-21); CALCIUM 9.1 mg/dL (8.4-10.5); GFR AFRICAN-AMERICAN > 60; GFR NON-AFRICAN AMERICAN 57
[2017-06-19] MEDS ORDERED: Lidocaine 2% Inj (20ml) ONE (09:14)
[2017-06-19] MEDS ORDERED: Midazolam 2 MG/2 ML VIAL ONE ×2 (09:14→10:02)
[2017-06-19] MEDS ORDERED: Iodixanol 320 MG/ML 100 ML BOTTLE IV ONE (09:14)
[2017-06-19] MEDS ORDERED: Iodixanol 320 MG/ML 200 ML BOTTLE IV ONE (09:15)
[2017-06-19] MEDS ORDERED: Sodium Chloride 0.9% 1,000 ML IV SCH (11:30)
[2017-06-19] MEDS: Naproxen 550 mg Tab PO SCH ×2 (12:13→17:12)
[2017-06-19] MEDS: FLUTICASO IH SCH (12:15)
[2017-06-19] MEDS: SALMETEROL XINAFOATE IH SCH (12:15)
[2017-06-19] MEDS: Oxycodone/Acetaminophen 10/325 mg Tab PO PRN (13:58)
--- NOTE | 2017-06-19 14:17 | CP.PCM.DIS ---
Provider - Provider Date of Admission: 06/17/17 10:35 Attending physician: Jenna Cortez MD Consults: Cardiology: Dr Mcqueen Time Spent in preparation of Discharge (in minutes): 35 Hospital Course - Lab Results Lab Results: Most Recent Lab Values WBC 7.1 10^3/ul (4.5-11.0) 06/19/17 06:40 RBC 4.00 10^6/uL (3.5-6.1) 06/19/17 06:40 Hgb 12.1 g/dL (12.0-16.0) 06/19/17 06:40 Hct 35.8 % (36.0-48.0) L 06/19/17 06:40 MCV 89.5 fl (80.0-105.0) 06/19/17 06:40 MCH 30.3 pg (25.0-35.0) 06/19/17 06:40 MCHC 33.8 g/dl (31.0-37.0) 06/19/17 06:40 RDW 12.5 % (11.5-14.5) 06/19/17 06:40 Plt Count 248 10^3/uL (120.0-450.0) 06/19/17 06:40 MPV 9.1 fl (7.0-11.0) 06/19/17 06:40 Gran % 63.3 % (50.0-68.0) 06/19/17 06:40 Lymph % (Auto) 25.3 % (22.0-35.0) 06/19/17 06:40 Burnett % (Auto) 6.6 % (1.0-6.0) H 06/19/17 06:40 Eos % (Auto) 4.5 % (1.5-5.0) 06/19/17 06:40 Baso % (Auto) 0.3 % (0.0-3.0) 06/19/17 06:40 Gran # 4.48 (1.4-6.5) 06/19/17 06:40 Lymph # (Auto) 1.8 (1.2-3.4) 06/19/17 06:40 Burnett # (Auto) 0.5 (0.1-0.6) 06/19/17 06:40 Eos # (Auto) 0.3 (0.0-0.7) 06/19/17 06:40 Baso # (Auto) 0.02 K/mm3 (0.0-2.0) 06/19/17 06:40 PT 11.7 SECONDS (9.4-12.5) 06/17/17 00:36 INR 1.03 (0.93-1.08) 06/17/17 00:36 APTT 30.7 Seconds (25.1-36.5) 06/17/17 00:36 Sodium 139 mmol/L (132-148) 06/19/17 06:40 Potassium 3.8 mmol/L (3.6-5.0) 06/19/17 06:40 Chloride 101 mmol/L (98-107) 06/19/17 06:40 Carbon Dioxide 29 mmol/L (21-33) 06/19/17 06:40 Anion Gap 13 (10-20) 06/19/17 06:40 BUN 29 mg/dL (7-21) H 06/19/17 06:40 Creatinine 1.0 mg/dl (0.7-1.2) 06/19/17 06:40 Est GFR ( Amer) > 60 06/19/17 06:40 Est GFR (Non-Af Amer) 57 06/19/17 06:40 POC Glucose (mg/dL) 98 mg/dL (65-110) 06/19/17 12:26 Random Glucose 112 mg/dL (70-110) H 06/19/17 06:40 Hemoglobin A1c 5.8 % (4.2-6.5) 06/17/17 07:59 Calcium 9.1 mg/dL (8.4-10.5) 06/19/17 06:40 Phosphorus 3.5 mg/dL (2.5-4.5) 06/17/17 07:59 Magnesium 2.1 mg/dL (1.7-2.2) 06/17/17 07:59 Total Bilirubin 0.4 mg/dL (0.2-1.3) 06/19/17 06:40 AST 26 U/L (14-36) 06/19/17 06:40 ALT 25 U/L (7-56) 06/19/17 06:40 Alkaline Phosphatase 74 U/L (38-126) 06/19/17 06:40 Lactate Dehydrogenase 515 U/L (333-699) 06/17/17 00:36 Total Creatine Kinase 73 U/L (35-230) 06/17/17 00:36 Troponin I < 0.01 ng/mL 06/17/17 13:45 Total Protein 6.5 g/dL (5.8-8.3) 06/19/17 06:40 Albumin 3.9 g/dL (3.0-4.8) 06/19/17 06:40 Globulin 2.6 gm/dL 06/19/17 06:40 Albumin/Globulin Ratio 1.5 (1.1-1.8) 06/19/17 06:40 Triglycerides 156 mg/dL (35-160) 06/17/17 07:59 Cholesterol 204 mg/dL (130-200) H 06/17/17 07:59 LDL Cholesterol Direct 127 mg/dL (0-129) 06/17/17 07:59 HDL Cholesterol 44 mg/dL (29-60) 06/17/17 07:59 TSH 3rd Generation 4.17 mIU/mL (0.46-4.68) 06/17/17 07:59 - Hospital Course Hospital Course: 57 year old female, with PMH hypertension, TIA, depression, anxiety, presents for left sided chest pain that started yesterday evening. Describes it as sharp , radiating to left arm and left neck. Patient also states that her blood pressure has been high for the past 3 days. Denies sob, diaphoresis, f/c, abdominal pain, n/v/d, leg swelling, urinary symptoms. Pt received 4 baby ASA and Nitro in ED by EMS with some relief in symptoms. Patient was admitted to telemetry. EKG showed NSR with mild NSSTW changes. CXR showed no active disease. Troponins were negative x 3. Patient went for cardiac catherization with Dr Mcqueen. She tolerated the procedure well. Cardiac cath was normal (see full report). On day of discharge patient was doing well. Chest pain has improved. Cath site dressing was clean/dry/intact. Cardiac cath report printed for the patient. 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 Patient with impaired glucose tolerance, hgA1C 5.8 and with elevated cholesterol. Diet modification and exercise advised. Medications reconciled. All questions and concerns addressed. Discharge Exam - Head Exam Head Exam: ATRAUMATIC, NORMAL INSPECTION, NORMOCEPHALIC - Eye Exam Eye Exam: EOMI, Normal appearance Pupil Exam: NORMAL ACCOMODATION - Respiratory Exam Respiratory Exam: Clear to PA & Lateral, NORMAL BREATHING PATTERN, UNREMARKABLE. absent: Rales, Rhonchi, Wheezes, Respiratory Distress - Cardiovascular Exam Cardiovascular Exam: REGULAR RHYTHM, +S1, +S2 - GI/Abdominal Exam GI & Abdominal Exam: Normal Bowel Sounds, Soft. absent: Guarding, Rebound, Rigid, Tenderness, Unremarkable - Extremities Exam Extremities exam: normal inspection Additional comments: Cath access site dressing c/d/i; no hematoma; distal pulses intact - Neurological Exam Neurological exam: Alert, Oriented x3 - Psychiatric Exam Psychiatric exam: Normal Affect, Normal Mood - Skin Skin Exam: Dry, Normal Color, Warm Discharge Plan - Discharge Medications Prescriptions: Clopidogrel [Plavix] 75 mg PO DAILY #30 tab Oxycodone HCl/Acetaminophen [Percocet 10-325 mg Tablet] 1 each PO TID PRN #3 tablet PRN Reason: Pain, Severe (8-10) - Follow Up Plan Condition: STABLE Disposition: HOME/ ROUTINE Instructions: Chest Pain (DC), Chest Pain (GEN), Back Pain (GEN) Additional Instructions: 1. Please follow up with PMD and assembling motor builder within 1 week 2. Continue medications as prescribed 3. If any worsening of symptoms, please go to nearest ER Referrals: Brittany Shaw MD [Family Provider] - Sha Mcqueen MD [Staff Provider] -
--- NOTE | 2017-06-19 15:22 | CARDCATH ---
PROCEDURE DATE: 06/19/2017 HISTORY: The patient is a 57-year-old woman who presents with angina. She suffers from hypertension and hypercholesterolemia. She states she had a catheterization done at [facility] in the past and has been on Plavix this entire time. She is not sure whether she had a stent placed or not. Because of her ongoing symptoms including symptoms at rest, cardiac catheterization was recommended. PROCEDURE: Left heart catheterization with coronary arteriography and left ventriculogram. The right femoral artery was cannulated with a 6-Martiniquais sheath. There were no complications. Findings on catheterization revealed a right dominant circulation. I performed moderate sedation which included the presence of an independent trained observer that assisted in monitoring the patient's level of consciousness and physiologic status. After administration of Versed and fentanyl, my intra-service time was 15 minutes. The patient's right dominant RCA was free of significant disease. The left main artery was unremarkable. The LAD and diagonal vessels were free of significant disease. The circumflex artery and obtuse marginal branches were free of significant disease. LV function was viewed in the VALENTINE projection. In the VALENTINE projection, wall motion is within normal limits. Estimated ejection fraction is 55%-60%. Manual compression was used to close the femoral artery site. The patient tolerated the procedure well. In summary, the procedure revealed unremarkable coronary arteries with good LV function. Given these findings, the patient's chest pain is not of cardiac origin. From a cardiac perspective, the patient can be discharged. Sha Mcqueen MD
[2017-06-19 16:16] VITALS: RESP 16
[2017-06-19 16:22] VITALS: PULSE 79
[2017-06-19 17:44] VITALS: BP 126/60; TEMP 98.6
== END 2017-06-19 19:06 | disposition home or self-care (01) | DRG 124 ==
LOC: ED 00:01 → 3RSO 02:36 → UNDOADMOB 02:45 → ERH 02:45 → 3RSO 03:35 → OBSVTOIN 10:35 → 2RNO 06-19 11:26
PROVIDERS: ADMIT Hospitalist; ATTEND Internal Medicine
PROC: 4A023N7 Measurement of Cardiac Sampling and Pressure, Left Heart, Percutaneous Approach (ICD-10-PCS; principal; 2017-06-19)
PROC: B2111ZZ Fluoroscopy of Multiple Coronary Arteries using Low Osmolar Contrast (ICD-10-PCS; 2017-06-19)
PROC: B2151ZZ Fluoroscopy of Left Heart using Low Osmolar Contrast (ICD-10-PCS; 2017-06-19)
DX: I25.119 Atherosclerotic heart disease of native coronary artery with unspecified angina pectoris (principal); I11.0 Hypertensive heart disease with heart failure; I50.9 Heart failure, unspecified; J44.9 Chronic obstructive pulmonary disease, unspecified; E11.9 Type 2 diabetes mellitus without complications; E78.00 Pure hypercholesterolemia, unspecified; Z79.02 Long term (current) use of antithrombotics/antiplatelets; Z79.82 Long term (current) use of aspirin; Z80.0 Family history of malignant neoplasm of digestive organs; Z82.49 Family history of ischemic heart disease and other diseases of the circulatory system; Z86.73 Personal history of transient ischemic attack (TIA), and cerebral infarction without residual deficits; Z87.891 Personal history of nicotine dependence; Z95.5 Presence of coronary angioplasty implant and graft; Z98.51 Tubal ligation status

== ENCOUNTER 2017-06-29 15:02 | Emergency (ER) | payer MEDICAID ==
[2017-06-29 15:03] VITALS: BMI 32.2
[2017-06-29 15:24] VITALS: TEMP 98.1
--- NOTE | 2017-06-29 15:59 | ED PDOC ---
Arrival/HPI - General Historian: Patient - History of Present Illness Time/Duration: > week Symptom Course: Resolved, Intermittent Quality: Unable to Describe ("ball-like discomfort") Severity Level: Mild - General Chief Complaint: High Blood Sugar Time Seen by Provider: 06/29/17 15:16 - History of Present Illness Narrative History of Present Illness (Text): 06/29/17 15:59 Patient is 57 year old female with a past medical history of hypertension, TIA, glucose intolerance, chronic back pain and a recent cardiac catheterization (w/ Dr. Mcqueen on 06/19/17). Patient was at her pain management physician's office when she found her blood glucose to be 205. She reports that her blood pressure was elevated but does not remember how high it was. Per patient, the staff at the doctor's office was concerned and called for her to be taken to the emergency room. The patient is resting comfortably in her bed, speaking in full sentences, smiling in no acute distress. The patient states she is experiencing similar chest pain that caused her to be admitted approximately two weeks. She had a cardiac cath with Dr. Mcqueen on 06/19/17 which show no significant disease throughout with an EF ~ 55%. The chest pain is located on the left side her chest and right mid-axillary region. Both are described as a ball-like, discomfort w/o radiation that occurs intermittently since she was discharged on 06/19/17. When present, the pain is worsened with deep inspiration and palpation. She experienced once episode of nausea while at the doctor's office but did not vomit. Patient denies fevers, chills, diarrhea, constipation, sore throat, cough, vision changes, abdominal pain, sob, numbness, tingling, vision changes, headaches or weakness. (EdnaLj) Past Medical History - Provider Review Nursing Documentation Reviewed: Yes - Past History Past History: No Previous - Infectious Disease Hx of Infectious Diseases: None - Tetanus Immunization Tetanus Immunization: Unknown - Cardiac Hx Cardiac Disorders: Yes Hx Congestive Heart Failure: Yes Hx Hypertension: Yes - Pulmonary Hx Chronic Obstructive Pulmonary Disease (COPD): Yes (uses O2) - Neurological Hx Neurological Disorder: No - HEENT Hx HEENT Disorder: No - Renal Hx Renal Disorder: No - Endocrine/Metabolic Hx Diabetes Mellitus Type 2: Yes - Hematological/Oncological Hx Blood Disorders: No - Integumentary Hx Dermatological Disorder: No - Musculoskeletal/Rheumatological Hx Musculoskeletal Disorders: Yes Hx Back Pain: Yes Hx Herniated Disk: Yes - Gastrointestinal Hx Gastrointestinal Disorders: No - Genitourinary/Gynecological Hx Genitourinary Disorders: No - Psychiatric Hx Psychophysiologic Disorder: Yes Hx Anxiety: Yes Hx Depression: Yes Hx Substance Use: No - Past Surgical History Past Surgical History: No Previous - Surgical History Hx Section: Yes Hx Tonsillectomy: Yes Hx Tubal Ligation: Yes (REVERSED) - Anesthesia Hx Anesthesia: No Hx Anesthesia Reactions: No Hx Malignant Hyperthermia: No - Suicidal Assessment Feels Threatened In Home Enviroment: No Family/Social History - Physician Review Nursing Documentation Reviewed: Yes Family/Social History: Unknown Family HX Smoking Status: Former Smoker Hx Alcohol Use: No Hx Substance Use: No Hx Substance Use Treatment: No Allergies/Home Meds Allergies/Adverse Reactions: Allergies latex Allergy (Verified 06/29/17 15:17) RASH Penicillins Allergy (Verified 06/29/17 15:17) RASH Home Medications: Home Meds Medication Instructions Recorded Confirmed Acetaminophen/Oxycodone Hydr 1 tab PO Q6H PRN 04/14/13 06/29/17 [Percocet 10/325 mg Tab] Albuterol HFA [Ventolin HFA 90 1 puff IH Q4 PRN 04/14/13 06/29/17 mcg/actuation (8 g)] Aspirin [Aspirin Chewable] 81 mg PO DAILY 05/01/16 06/29/17 Atorvastatin [Lipitor] 20 mg PO DAILY 07/07/16 06/29/17 Lisinopril/Hydrochlorothiazide 12.5 each PO DAILY 07/07/16 06/29/17 [Lisinopril-Hctz 10-12.5 mg Tab] Salmeterol Xinafoate/Fluticaso 1 puff IH DAILY 08/13/16 06/29/17 [Advair Hfa 45-21] Zolpidem [Ambien] 10 mg PO DAILY 08/13/16 06/29/17 Review of Systems - Review of Systems Constitutional: Normal. absent: Fatigue, Fevers Eyes: Normal. absent: Vision Changes ENT: Normal. absent: Sore Throat, Rhinorrhea Respiratory: Normal. absent: SOB, Cough, Sputum Cardiovascular: Chest Pain (L-side chest, R-sided mid-axillary). absent: Palpitations, Edema, Calf Pain, Syncope Gastrointestinal: Nausea (resolved). absent: Abdominal Pain, Constipation, Diarrhea, Vomiting Genitourinary Female: Normal. absent: Dysuria, Frequency, Urine Output Changes Musculoskeletal: Back Pain (chronic) Skin: Normal Neurological: Normal. absent: Headache, Dizziness, Focal Weakness, Gait Changes Endocrine: Normal. absent: Diaphoresis Hemo/Lymphatic: Normal. absent: Adenopathy Psychiatric: Normal Physical Exam Vital Signs Reviewed: Yes Temperature: Afebrile Blood Pressure: Hypertensive Pulse: Regular Respiratory Rate: Normal Appearance: Positive for: Well-Appearing, Non-Toxic, Comfortable Pain Distress: None Mental Status: Positive for: Alert and Oriented X 3 Finger Stick Blood Glucose: 105 - Systems Exam Head: Present: Atraumatic, Normocephalic Pupils: Present: PERRL Extroacular Muscles: Present: EOMI Conjunctiva: Present: Normal Mouth: Present: Moist Mucous Membranes Neck: Present: Normal Range of Motion. No: MIDLINE TENDERNESS, JVD, Lymphadenopathy Respiratory/Chest: Present: Clear to Auscultation, Good Air Exchange, Tender to Palpation (anterior left chest and lateral right chest). No: Respiratory Distress, Accessory Muscle Use, Wheezes, Rales, Rhonchi Cardiovascular: Present: Regular Rate and Rhythm, Normal S1, S2, Peripheal Pulses Present. No: Murmurs, Rub Abdomen: Present: Normal Bowel Sounds. No: Tenderness, Distention, Peritoneal Signs, Rebound, Guarding Back: Present: Normal Inspection Upper Extremity: Present: Normal Inspection, Normal ROM, NORMAL PULSES. No: Cyanosis, Edema, Tenderness Lower Extremity: Present: Normal Inspection, NORMAL PULSES. No: Edema, CALF TENDERNESS Neurological: Present: GCS=15, CN II-XII Intact, Speech Normal Skin: Present: Warm, Dry, Normal Color. No: Rashes, Diaphoretic Lymphatic: No: Cervical Adenopathy Psychiatric: Present: Alert, Oriented x 3, Normal Insight, Normal Concentration Vital Signs Temp Pulse Resp BP Pulse Ox 06/29/17 19:19 80 18 141/72 98 06/29/17 17:35 98.1 F 80 20 132/74 98 06/29/17 15:24 98.1 F 06/29/17 15:17 85 18 154/88 H 99 Medical Decision Making Reassessment Condition: Improved - Lab Interpretations I have reviewed the lab results: Yes - RAD Interpretation Tobacco Prevention Health Educator: Radiologist - EKG Interpretation Interpreted by ED Physician: Yes Type: 12 lead EKG Comparison: Similar to previous EKG ED Course and Treatment: 06/29/17 18:08 CXR - Bibasilar atelectasis and or scarring changes left greater than right. Developing infiltrate could be excluded followup radiographs. There may also be some localized tenting of the medial aspect left hemidiaphragm. Elevated d-dimer - ordered CT angio - Unremarkable CT pulmonary angiogram. No pulmonary embolus. 06/29/17 19:30 Patient re-evaluated, smiling stating that her chest pain had resolved and currently has no complaints. She is requesting food. Patient informed that she will be discharged home and that she needs to follow up with her PMD, Dr. Shaw , within the next two days. Patient states she understands and will follow up accordingly. (Lj Bishop) 06/29/17 19:58 Patient seen by resident and then evaluated by me. Lungs cta b/l. Heart:RRR. Patient reports chronic chest pain unchanged since recent hospital admission with normal cath. Trop x 1 negative. CTA negative. Patient has had extensive evaluation by cardiology for same pain and has follow-up. BP normal in ED and blood glucose grossly normal. Instructed to follow-up with PMD. (Marcia Raymond) - Lab Interpretations Lab Results: 06/29/17 16:15 06/29/17 16:15 Lab Results 06/29/17 16:15: Sodium 141, Potassium 3.7, Chloride 103, Carbon Dioxide 29, Anion Gap 13, BUN 15, Creatinine 0.8, Est GFR ( Amer) > 60, Est GFR (Non- Af Amer) > 60, Random Glucose 131 H, Calcium 8.8, Magnesium 2.2, Total Bilirubin 0.4, AST 28, ALT 33, Alkaline Phosphatase 70, Lactate Dehydrogenase 446, Total Creatine Kinase 96, Troponin I < 0.01, Total Protein 6.4, Albumin 3.8 , Globulin 2.7, Albumin/Globulin Ratio 1.4 06/29/17 16:15: PT 10.9, INR 0.96, APTT 29.6, D-Dimer, Quantitative 919 H 06/29/17 16:15: WBC 6.5, RBC 3.84, Hgb 11.8 L, Hct 34.1 L, MCV 88.8, MCH 30.7, MCHC 34.6, RDW 12.5, Plt Count 246, MPV 8.9, Gran % 55.5, Lymph % (Auto) 34.5, [place] % (Auto) 5.7, Eos % (Auto) 4.0, Baso % (Auto) 0.3, Gran # 3.63, Lymph # ( Auto) 2.3, [place] # (Auto) 0.4, Eos # (Auto) 0.3, Baso # (Auto) 0.02 06/29/17 15:18: POC Glucose (mg/dL) 108 - RAD Interpretation Narrative RAD Interpretations (Text): 06/29/17 18:07 CXR - Bibasilar atelectasis and or scarring changes left greater than right. Developing infiltrate could be excluded followup radiographs. There may also be some localized tenting of the medial aspect left hemidiaphragm. 06/29/17 19:23 CT Angio - Unremarkable CT pulmonary angiogram. No pulmonary embolus. (Lj Bishop) Radiology Orders: 06/29/17 15:46 CHEST PORTABLE [RAD] Stat 06/29/17 17:58 ANGIO CHEST PE PROTOCOL [CT] Stat - EKG Interpretation EKG Interpretation (Text): 06/29/17 18:04 NSR @ 81bpm, normal axis, T wave inversions in aVR and V1. - unchanged from previous EKG on 06/17/17 (Lj Bishop) - Medication Orders Current Medication Orders: Discontinued Medications Aspirin (Aspirin) 325 mg PO STAT STA Stop: 06/29/17 15:46 Last Admin: 06/29/17 16:19 Dose: 325 mg Disposition/Present on Arrival - Present on Arrival Any Indicators Present on Arrival: No History of DVT/PE: No History of Uncontrolled Diabetes: No Urinary Catheter: No History of Decub. Ulcer: No History Surgical Site Infection Following: None - Disposition Have Diagnosis and Disposition been Completed?: Yes Disposition Time: 19:26 Patient Plan: Discharge - Disposition Diagnosis: Chest pain, Hyperglycemia, Hypertension Disposition: HOME/ ROUTINE Patient Problems: Current Active Problems Problem Status Onset Chest pain Acute Hyperglycemia Acute Hypertension Acute Condition: IMPROVED Discharge Instructions (ExitCare): Hyperglycemia, Adult (DC), Controlling Your Blood Pressure Through Lifestyle, Chest Pain (ED) Additional Instructions: Patient is to follow up with their PMD within 1-2 days from date of discharge. Please return to the nearest emergency room if you experience any new or worsening symptoms. Referrals: Brittany Shaw MD [Primary Care Provider] - Follow up with primary Forms: [employer] ([place])
--- NOTE | 2017-06-29 16:24 | RAD ---
HISTORY: Chest pain. COMPARISON: Comparison chest 06/17/2017 FINDINGS: LUNGS: Bibasilar atelectasis and or scarring changes left greater than right. Developing infiltrate could be excluded followup radiographs. There may also be some localized tenting of the medial aspect left hemidiaphragm. PLEURA: No significant pleural effusion identified, no pneumothorax apparent. CARDIOVASCULAR: Heart appears mildly enlarged OSSEOUS STRUCTURES: No significant abnormalities. VISUALIZED UPPER ABDOMEN: Normal. OTHER FINDINGS: None. IMPRESSION: Bibasilar atelectasis and or scarring changes left greater than right. Developing infiltrate could be excluded followup radiographs. There may also be some localized tenting of the medial aspect left hemidiaphragm.
[2017-06-29 16:35] LABS: BASO # 0.02 K/mm3 (0.0-2.0); BASO % 0.3 % (0.0-3.0); EOS # 0.3 (0.0-0.7); GRAN # 3.63 (1.4-6.5); GRAN % 55.5 % (50.0-68.0); HEMOGLOBIN 11.8 g/dL (12.0-16.0); LYMPH # 2.3 (1.2-3.4); LYMPH % 34.5 % (22.0-35.0); MEAN CELL VOLUME 88.8 fl (80.0-105.0); MEAN CORPUSCULAR HEMOGLOBIN 30.7 pg (25.0-35.0); MEAN CORPUSCULAR HGB CONC 34.6 g/dl (31.0-37.0); MEAN PLATELET VOLUME 8.9 fl (7.0-11.0); MONO # 0.4 (0.1-0.6); MONO % 5.7 % (1.0-6.0); RBC 3.84 10^6/uL (3.5-6.1); RED CELL DISTRIBUTION WIDTH 12.5 % (11.5-14.5); WHITE BLOOD COUNT 6.5 10^3/ul (4.5-11.0)
[2017-06-29 16:49] LABS: ALB/GLOB RATIO 1.4 (1.1-1.8); ALBUMIN 3.8 g/dL (3.0-4.8); ALT/SGPT 33 U/L (7-56); AST/SGOT 28 U/L (14-36); BLOOD UREA NITROGEN 15 mg/dL (7-21); CALCIUM 8.8 mg/dL (8.4-10.5); GFR AFRICAN-AMERICAN > 60; GFR NON-AFRICAN AMERICAN > 60
[2017-06-29 16:53] LABS: TROPONIN I < 0.01 ng/mL
[2017-06-29 16:59] LABS: INR 0.96 (0.93-1.08); PROTHROMBIN TIME 10.9 SECONDS (9.4-12.5)
[2017-06-29 17:00] LABS: PARTIAL THROMBOPLASTIN TIME 29.6 Seconds (25.1-36.5)
[2017-06-29 17:40] VITALS: PULSE 80; O2SAT 98
[2017-06-29] MEDS ORDERED: Iohexol 350 MG/100 ML VIAL ONE (18:19)
--- NOTE | 2017-06-29 19:04 | CT ---
PROCEDURE: CT Chest with contrast (Pulmonary Angiogram) HISTORY: pleuritic chest pain COMPARISON: None available. TECHNIQUE: Axial computed tomography images were obtained of the chest in the pulmonary arterial phase of enhancement. Coronal and sagittal reformatted images were created and reviewed. Intravenous contrast dose: 95 cc Omnipaque 350 Mean Hounsfield unit values in the main pulmonary artery: 320.98 Radiation dose: Total exam DLP = 475.68 mGy-cm. This CT exam was performed using one or more of the following dose reduction techniques: Automated exposure control, adjustment of the mA and/or kV according to patient size, and/or use of iterative reconstruction technique. FINDINGS: PULMONARY ARTERIES: Unremarkable. No pulmonary embolism. AORTA: No acute findings. No thoracic aortic aneurysm. LUNGS: Unremarkable. No nodule, mass or pulmonary consolidation. PLEURAL SPACES: Unremarkable. No effusion or pneuomothorax. HEART: Unremarkable. No cardiomegaly. No significant pericardial effusion. LYMPH NODES: No lymphadenopathy. BONES, CHEST WALL: Unremarkable. No fracture or destructive lesion OTHER FINDINGS: Unremarkable. IMPRESSION: Unremarkable CT pulmonary angiogram. No pulmonary embolus.
[2017-06-29 19:20] VITALS: BP 141/72; RESP 18
--- NOTE | 2017-06-30 08:06 | CARD ---
APPROVED REPORT EKG Measurement Heart [id number] <Conclusion> Normal sinus rhythm Nonspecific T wave abnormality
== END 2017-06-29 19:38 | disposition home or self-care (01) ==
LOC: ED 15:02
DX: E11.65 Type 2 diabetes mellitus with hyperglycemia (principal); I10 Essential (primary) hypertension; R07.9 Chest pain, unspecified; I50.9 Heart failure, unspecified; Z87.891 Personal history of nicotine dependence
CPT/HCPCS: 71045; 71275; 80053; 82550; 82948; 83615; 83735; 84484; 85025; 85378; 85610; 85730; 93005; 99283; Q9967